=== PATIENT | male | born 1970 | race Caucasian/White ===

== ENCOUNTER 2023-09-02 08:41 | Emergency (ER) | payer OTHER ==
--- NOTE | 2023-09-02 08:56 | ERPHSYRPT ---
- History of Present Illness Time Seen by Provider: 09/02/23 08:56 Source: patient Exam Limitations: no limitations Physician History: This is an [id number] white male patient has a history of hypertension, gout and is diabetic and presents with left foot redness and swelling for approximately 4 to 5 days. Patient has recurrent issues with ingrown toenails of the left great toe. Patient states that the redness today has retracted somewhat. The redness and swelling are at the foot and right great toe. It does not extend to the ankle or more proximally. Method of Injury: other (Ingrown left great toenail) Quality: constant, aching Severity of Pain-Max: mild Severity of Pain-Current: mild (To moderate to moderate) Lower Extremities Pain: 1st toe: left Modifying Factors: Improves With: nothing Associated Symptoms: none Allergies/Adverse Reactions: No Known Drug Allergies Allergy (Verified 09/02/23 08:50) Home Medications: Allopurinol 100 mg [Zyloprim 100 mg] 1 tab PO DAILY 09/02/23 [History] Glipizide 5 mg [Glucotrol 5 MG] 1 tab PO DAILY 09/02/23 [History] Verapamil HCl [Verapamil ER] 1 cap PO DAILY 09/02/23 [History] Travel Risk - International Travel Have you traveled outside of the country in past 3 weeks: No - Coronavirus Screening Are you exhibiting any of the following symptoms?: No Close contact with a COVID-19 positive Pt in past 14-21 Days: No - Review of Systems Constitutional: No Symptoms Eyes: No Symptoms Ears, Nose, & Throat: No Symptoms Respiratory: No Symptoms Cardiac: No Symptoms Abdominal/Gastrointestinal: No Symptoms Genitourinary Symptoms: No Symptoms Musculoskeletal: No Symptoms Skin: Cellulitis (Left foot) Neurological: No Symptoms Psychological: No Symptoms Endocrine: No Symptoms Hematologic/Lymphatic: No Symptoms Immunological/Allergic: No Symptoms All Other Systems: Reviewed and Negative - Past Medical History Pertinent Past Medical History: Yes - Past Surgical History Past Surgical History: Yes - Nursing Vital Signs Nursing Vital Signs: Initial Vital Signs Temperature 97.4 F 09/02/23 08:41 Pulse Rate 103 H 09/02/23 08:41 Respiratory Rate 21 09/02/23 08:41 Blood Pressure 176/92 09/02/23 08:41 O2 Sat by Pulse Oximetry 96 09/02/23 08:41 Pain Scale Pain Intensity 4 - Physical Exam General Appearance: no apparent distress, alert, obese Eyes, Ears, Nose, Throat Exam: normal ENT inspection, moist mucous membranes Neck Exam: normal inspection, non-tender, supple, full range of motion Cardiovascular/Respiratory Exam: chest non-tender, no respiratory distress Gastrointestinal/Abdominal Exam: non-tender Back Exam: normal inspection, normal range of motion, No CVA tenderness, No vertebral tenderness Hips Exam: bilateral: non-tender, normal inspection, normal range of motion, no evidence of injury Legs Exam: bilateral leg: non-tender, normal inspection, normal range of motion, no evidence of injury Knees Exam: bilateral knee: non-tender, normal inspection, normal range of motion, no evidence of injury Ankle Exam: bilateral ankle: non-tender, normal inspection, normal range of motion, no evidence of injury Foot Exam: right foot: non-tender, normal inspection, no evidence of injury, left foot: soft tissue tenderness, swelling, other (Redness/cellulitis left foot), bilateral foot: normal range of motion Neuro/Tendon Exam: normal sensation, normal motor functions, normal tendon functions, responds to pain, no evidence tendon injury Mental Status Exam: alert, oriented x 3, cooperative Skin Exam: normal color, warm, dry SpO2 Interpretation: normal O2 Delivery: Room Air - Course Nursing assessment & vital signs reviewed: Yes Ordered Tests: Medication Summary Discontinued Medications Generic Name Dose Route Start Last Admin Trade Name Neris PRN Reason Stop Dose Admin Ceftriaxone Sodium 1,000 mg 09/02/23 09:33 Ceftriaxone Sodium 1000 Mg Inj Vial IM 09/02/23 09:34 STAT ONE Levofloxacin 500 mg 09/02/23 09:34 Levofloxacin 500 Mg Tablet PO 09/02/23 09:35 STAT ONE - Progress Progress Note: 09/02/23 09:42 This patient's medical issue is 1 of low complexity. Level complex in the workup performed is based on review the patient's past medical history, reviewed patient's medication list, reviewed patient's drug allergy list, history of present illness and physical findings on examination. This patient worked up does not require any laboratory radiographic studies. Patient will receive an intramuscular dose of Rocephin as well as an oral dose of Levaquin. I will remotely send a prescription for indomethacin, Levaquin, and Percocet to the patient's pharmacy. Patient will return to our emergency department for reevaluation in 24 hours. Medical Desision Making - Diagnostic Testing Diagnostic test were ordered, analyzed, and reviewed by me: No - Risk of complications The pt has a mod risk of morbidity or mortality based on: Need for prescription drug management - Departure Departure Disposition: Home Clinical Impression: Cellulitis of left foot Condition: Stable Critical Care Time: No Additional Instructions: Drink plenty fluids. Take your medication as prescribed. Return to the emergency department tomorrow approximately noon, 09/03/2023, for reevaluation. Prescriptions: Oxycodone HCl/Acetaminophen [Percocet 5-325 mg Tablet] 1 each PO Q8H PRN PRN #6 tablet MDD 3 PRN Reason: Moderate To Severe Pain Indomethacin 25 mg [Indocin 25 MG] 25 mg PO TID #15 cap Levofloxacin [Levaquin 500 MG Tablet] 500 mg PO DAILY #7 tablet
[2023-09-02 09:03] VITALS: TEMP 97.4
[2023-09-02 09:28] VITALS: PULSE 96
[2023-09-02] MEDS ORDERED: Rocephin 1000 MG INJ IM ONE (09:33)
[2023-09-02] MEDS ORDERED: Levofloxacin 500 MG Tablet PO ONE (09:34)
[2023-09-02] MEDS ORDERED: Rocephin 1000 MG INJ ONE (09:46)
[2023-09-02] MEDS ORDERED: Levofloxacin 500 MG Tablet ONE (09:46)
[2023-09-02] MEDS ORDERED: XYLOCAINE 1% HCL 20 ML MDV ONE (09:47)
[2023-09-02 10:04] VITALS: BP 151/85; RESP 18; O2SAT 98
== END 2023-09-02 10:04 | disposition home or self-care (01) ==
LOC: ED 08:41
DX: L03.116 Cellulitis of left lower limb (principal); M79.89 Other specified soft tissue disorders; I10 Essential (primary) hypertension; E11.9 Type 2 diabetes mellitus without complications; Z79.891 Long term (current) use of opiate analgesic; Z79.84 Long term (current) use of oral hypoglycemic drugs; Z79.899 Other long term (current) drug therapy
CPT/HCPCS: 96372; 99283; J0696; A9270-GY

== ENCOUNTER 2024-09-06 07:31 | Observation (INO) | payer OTHER ==
--- NOTE | 2024-09-06 07:51 | ERPHSYRPT ---
- History of Present Illness Time Seen by Provider: 09/06/24 08:00 Historian: patient Exam Limitations: no limitations Physician History: 54-year-old male presents to emergency department for evaluation of chest pain. Patient has a back abscess. Patient states the abscess has been draining spontaneously. However patient now feels chest pain and patient believes the c hest pain may be potentially originating from the abscess. Chest pain associated with nausea. No diaphoresis. No trauma. Symptoms are mild to moderate in intensity. Patient requesting pain medication for comfort. Morphine administered. Patient otherwise feels well. He voices no other complaints or concerns at this time. Patient advises that [facility] is [facility]. Portions of this note were created with voice recognition technology. There may be grammatical, spelling, punctuation or sound alike errors Timing/Duration: today Activities at Onset: none Quality: aching Location: substernal, other (Patient states pain radiates from his abscess to his chest) Severity of Pain-Current: mild Modifying Factors: Improves With: nothing Associated Symptoms: denies symptoms Prior Chest Pain/Cardiac Workup: no prior chest pain Nitro Today/Relief: no nitro taken today Aspirin Treatment Today: no aspirin today Allergies/Adverse Reactions: lansoprazole [From Prevacid] Allergy (Verified 09/06/24 07:43) Home Medications: Allopurinol 100 mg [Zyloprim 100 mg] 1 tab PO DAILY 09/02/23 [History] Glipizide 5 mg [Glucotrol 5 MG] 1 tab PO DAILY 09/02/23 [History] Verapamil HCl [Verapamil ER] 1 cap PO DAILY 09/02/23 [History] Lisinopril/Hydrochlorothiazide [Lisinopril-Hctz 20-12.5 mg Tab] 1 ea DAILY 09/06/24 [History] Metformin HCl 500 mg [Glucophage 500 MG] 1,000 mg PO BIDWM 09/06/24 [History] Methocarbamol [Robaxin] 1 ea DAILY 09/06/24 [History] Hx Tetanus, Diphtheria Vaccination/Date Given: Yes Hx Influenza Vaccination/Date Given: No Hx Pneumococcal Vaccination/Date Given: No - Review of Systems Constitutional: No Symptoms, No Fever, No Chills Eyes: No Symptoms Ears, Nose, & Throat: No Symptoms Respiratory: No Symptoms, No Cough, No Dyspnea Cardiac: No Symptoms, No Chest Pain, No Edema, No Syncope Abdominal/Gastrointestinal: No Symptoms, No Abdominal Pain, No Nausea, No Vomiting, No Diarrhea Genitourinary Symptoms: No Symptoms, No Dysuria Musculoskeletal: No Symptoms, No Back Pain, No Neck Pain Skin: No Symptoms, No Rash Neurological: No Symptoms, No Dizziness, No Focal Weakness, No Sensory Changes Psychological: No Symptoms Endocrine: No Symptoms Hematologic/Lymphatic: No Symptoms Immunological/Allergic: No Symptoms All Other Systems: Reviewed and Negative - Past Medical History Pertinent Past Medical History: Yes Cardiac History: High Cholesterol, Hypertension Respiratory History: Sleep Apnea Endocrine Medical History: Diabetes Type II Musculoskeletal History: Arthritis GI Medical History: Gallbladder Disease Psycho-Social History: Depression - Past Surgical History Past Surgical History: Yes Gastrointestinal: Cholecystectomy - Social History Smoking Status: Never smoker Exposure to second hand smoke: No Drug Use: none - Nursing Vital Signs Nursing Vital Signs: Initial Vital Signs Pulse Rate 113 H 09/06/24 07:43 Respiratory Rate 23 09/06/24 07:43 Blood Pressure 156/97 09/06/24 07:43 O2 Sat by Pulse Oximetry 95 09/06/24 07:43 Pain Scale Pain Intensity 6 - Physical Exam General Appearance: no apparent distress, alert Eye Exam: PERRL/EOMI, eyes nml inspection Ears, Nose, Throat Exam: normal ENT inspection, moist mucous membranes Neck Exam: normal inspection, non-tender, supple, full range of motion Respiratory Exam: normal breath sounds, lungs clear, No respiratory distress Cardiovascular Exam: regular rate/rhythm, normal heart sounds Gastrointestinal/Abdomen Exam: soft, No tenderness, No mass Back Exam: normal inspection, No CVA tenderness, No vertebral tenderness Extremity Exam: normal inspection, normal range of motion Neurologic Exam: alert, oriented x 3, cooperative, normal mood/affect, sensation nml, No motor deficits Skin Exam: normal color, warm, dry, other (Right upper back draining abscess measuring 2 x 2 cm.) Lymphatic Exam: No adenopathy SpO2 Interpretation: normal SpO2: 99 O2 Delivery: Room Air - Course Nursing assessment & vital signs reviewed: Yes EKG Interpreted by Me: RATE (110), Sinus Tach, NORMAL AXIS, NORMAL INTERVALS, NORMAL QRS (T wave inversion in inferior leads) Ordered Tests: Active Orders 24 hr Category Date Time Status Cost And Sales Record Supervisor STAT Care 09/06/24 07:48 Active EKG-ER Only STAT Care 09/06/24 07:47 Active IV Insertion STAT Care 09/06/24 07:47 Active Pulse Oximetry (ED) STAT Care 09/06/24 07:47 Active CHEST 1 VIEW (PORTABLE) Stat Exams 09/06/24 09:31 Completed CHEST WITH CONTRAST [CT] Stat Exams 09/06/24 12:50 Completed CBC W DIFF Stat Lab 09/06/24 08:05 Completed CMP Stat Lab 09/06/24 08:05 Completed D-DIMER QUANTITATIVE Stat Lab 09/06/24 08:05 Completed NT PRO BNPII Stat Lab 09/06/24 08:05 Completed TROPONIN Q4H Lab 09/06/24 08:05 Completed TROPONIN Q4H Lab 09/06/24 10:55 Completed TROPONIN Q4H Lab 09/06/24 16:00 Ordered Transfer Order Routine Transfer 09/06/24 Ordered Medication Summary Generic Name Dose Route Start Last Admin Trade Name Freq PRN Reason Stop Dose Admin Sodium Chloride 1,000 mls @ 100 mls/hr 09/06/24 12:15 09/06/24 13:24 Sodium Chloride 0.9% 1000 Ml IV 10/06/24 12:14 100 mls/hr .Q10H JANE Administration Discontinued Medications Generic Name Dose Route Start Last Admin Trade Name Freq PRN Reason Stop Dose Admin Aspirin 324 mg 09/06/24 07:49 09/06/24 08:12 Aspirin 81 Mg Tab.Chew PO 09/06/24 07:50 324 mg STAT ONE Administration Aspirin Confirm 09/06/24 08:09 Aspirin 81 Mg Tab.Chew Administered 09/06/24 08:10 Dose 324 mg .ROUTE .STK-MED ONE Doxycycline Hyclate 100 mg 09/06/24 12:00 09/06/24 12:04 Doxycycline Hyclate 100 Mg Tablet PO 09/06/24 12:01 100 mg STAT ONE Administration Doxycycline Hyclate Confirm 09/06/24 12:04 Doxycycline Hyclate 100 Mg Tablet Administered 09/06/24 12:05 Dose 100 mg .ROUTE .STK-MED ONE Vancomycin HCl 1 gm in 200 mls @ 125 mls/hr 09/06/24 12:51 09/06/24 13:25 Vancomycin 1 Gram/200 Ml Bag IV 09/06/24 14:26 125 ml/hr STAT ONE 125 mls/hr Administration Vancomycin HCl Confirm 09/06/24 13:21 Vancomycin 1 Gram/200 Ml Bag Administered 09/06/24 13:22 Dose 1 gm in 200 mls @ ud IV .STK-MED ONE Morphine Sulfate 2 mg 09/06/24 09:25 09/06/24 09:34 Morphine Sulfate 2 Mg/Ml Inj IV 09/06/24 09:26 2 mg STAT ONE Administration Morphine Sulfate Confirm 09/06/24 09:34 Morphine Sulfate 2 Mg/Ml Inj Administered 09/06/24 09:35 Dose 2 mg .ROUTE .STK-MED ONE Morphine Sulfate 4 mg 09/06/24 12:59 09/06/24 13:25 Morphine Sulfate 4 Mg/Ml Injection IV 09/06/24 13:00 4 mg STAT ONE Administration Morphine Sulfate Confirm 09/06/24 13:20 Morphine Sulfate 4 Mg/Ml Injection Administered 09/06/24 13:21 Dose 4 mg .ROUTE .STK-MED ONE Nitroglycerin 1 gm 09/06/24 12:36 09/06/24 13:25 Nitroglycerin 1 Gm Packet TOP 09/06/24 12:37 1 gm STAT ONE Administration Nitroglycerin Confirm 09/06/24 13:20 Nitroglycerin 1 Gm Packet Administered 09/06/24 13:21 Dose 1 gm .ROUTE .STK-MED ONE Ondansetron HCl 4 mg 09/06/24 08:04 09/06/24 08:12 Ondansetron Hcl 4 Mg/2 Ml Vial IV 09/06/24 08:05 4 mg STAT ONE Administration Ondansetron HCl Confirm 09/06/24 08:08 Ondansetron Hcl 4 Mg/2 Ml Vial Administered 09/06/24 08:09 Dose 4 mg .ROUTE .STK-MED ONE Lab/Rad Data: Laboratory Result Diagrams 09/06/24 08:05 09/06/24 08:05 Laboratory Results 09/06/24 09/06/24 09/06/24 Range/Units 10:55 08:05 08:05 WBC (4.23-9.07) x10^3/uL RBC (4.63-6.08) x10^6/uL Hgb (13.7-17.5) g/dL Hct (40.1-51.0) % MCV (79.0-92.2) fL MCH (25.7-32.2) pg MCHC (32.3-36.5) g/dL RDW (11.6-14.4) % Plt Count (163-337) x10^3/uL MPV (9.4-12.4) fL Gran % (34.0-67.9) % Immature Gran % (Auto) (0.001-0.429) % Nucleat RBC Rel Count (0.00-0.2) % Eos # (Auto) (0.04-0.54) x10^3/uL Immature Gran # (Auto) (0.001-0.031) x10^3u/L Absolute Lymphs (auto) (1.32-3.57) x10^3/uL Absolute Monos (auto) (0.30-0.82) x10^3/uL Absolute Nucleated RBC (0.00-0.012) x10^3u/L Lymphocytes % (21.8-53.1) % Monocytes % (5.3-12.2) % Eosinophils % (0.8-7.0) % Basophils % (0.2-1.2) % Absolute Granulocytes (1.78-5.38) x10^3/uL Basophils # (0.01-0.08) x10^3/uL D-Dimer < 0.19 (0.0-0.50) mg/L Sodium (135-145) mmol/L Potassium (3.5-5.1) mmol/L Chloride (98-107) mmol/L Carbon Dioxide (22-30) mmol/L Anion Gap (5-15) MEQ/L BUN (9-20) mg/dL Creatinine (0.66-1.25) mg/dL Estimated GFR ML/MIN Glucose (74-106) mg/dL Calcium (8.4-10.2) mg/dL Total Bilirubin (0.2-1.3) mg/dL AST (17-59) U/L ALT (0-50) U/L Alkaline Phosphatase (38-126) U/L Troponin I < 0.012 < 0.012 (0.000-0.033) ng/mL NT-Pro-B Natriuret Pep (<300) pg/mL Serum Total Protein (6.3-8.2) g/dL Albumin (3.5-5.0) g/dL 09/06/24 09/06/24 Range/Units 08:05 08:05 WBC 15.5 H (4.23-9.07) x10^3/uL RBC 4.81 (4.63-6.08) x10^6/uL Hgb 14.2 (13.7-17.5) g/dL Hct 40.7 (40.1-51.0) % MCV 84.6 (79.0-92.2) fL MCH 29.5 (25.7-32.2) pg MCHC 34.9 (32.3-36.5) g/dL RDW 12.9 (11.6-14.4) % Plt Count 210 (163-337) x10^3/uL MPV 9.7 (9.4-12.4) fL Gran % 73.1 H (34.0-67.9) % Immature Gran % (Auto) 0.5 H (0.001-0.429) % Nucleat RBC Rel Count 0.0 (0.00-0.2) % Eos # (Auto) 0.15 (0.04-0.54) x10^3/uL Immature Gran # (Auto) 0.08 H (0.001-0.031) x10^3u/L Absolute Lymphs (auto) 2.44 (1.32-3.57) x10^3/uL Absolute Monos (auto) 1.44 H (0.30-0.82) x10^3/uL Absolute Nucleated RBC 0.00 (0.00-0.012) x10^3u/L Lymphocytes % 15.8 L (21.8-53.1) % Monocytes % 9.3 (5.3-12.2) % Eosinophils % 1.0 (0.8-7.0) % Basophils % 0.3 (0.2-1.2) % Absolute Granulocytes 11.32 H (1.78-5.38) x10^3/uL Basophils # 0.04 (0.01-0.08) x10^3/uL D-Dimer (0.0-0.50) mg/L Sodium 131 L (135-145) mmol/L Potassium 3.9 (3.5-5.1) mmol/L Chloride 98 (98-107) mmol/L Carbon Dioxide 21 L (22-30) mmol/L Anion Gap 16.9 H (5-15) MEQ/L BUN 14 (9-20) mg/dL Creatinine 0.61 L (0.66-1.25) mg/dL Estimated GFR 113.4 ML/MIN Glucose 373 H (74-106) mg/dL Calcium 9.2 (8.4-10.2) mg/dL Total Bilirubin 0.60 (0.2-1.3) mg/dL AST 33 (17-59) U/L ALT 39 (0-50) U/L Alkaline Phosphatase 77 (38-126) U/L Troponin I (0.000-0.033) ng/mL NT-Pro-B Natriuret Pep 22.4 (<300) pg/mL Serum Total Protein 6.7 (6.3-8.2) g/dL Albumin 4.0 (3.5-5.0) g/dL - Progress Progress: improved Air Movement: good Progress Note: Patient will require hospitalization for further evaluation and treatment. [facility] We spoke to Pankaj from the transfer center at 12:34 PM. She advised keeping patient at our hospital for the required workup. 54-year-old male presents to our ED for evaluation of chest pain, nausea and a draining back abscess. Preliminary workup nonremarkable. EKG reveals inverted T waves. Initial 2 troponins negative. D-dimer negative. Patient will require hospitalization for further evaluation and treatment. Case discussed with hospitalist who accepts admission to observation. However she request CT a chest and vancomycin prior to floor transfer. Plan of care discussed with patient. He agrees to admission to [facility] for further evaluation and treatment. Portions of this note were created with voice recognition technology. There may be grammatical, spelling, punctuation or sound alike errors Complexity of problem addressed is moderate acute complicated no critical care time. Complex of data reviewed and analyzed is extensive. Test ordered chest reviewed results analyzed and correlated clinically with history and physical exam. Management discussed with hospitalist who accepts admission to observation at 12:48 PM. Risk of complication and or risk of morbidity/mortality of patient management is high. Patient requires hospitali zation for further evaluation and treatment. Vital stable. Time spent admit patient is approximately 15 minutes. Plan of care established for shared decision making. No social determinants of health present to impede follow-up. Portions of this note were created with voice recognition technology. There may be grammatical, spelling, punctuation or sound alike errors 09/06/24 12:35 Blood Culture(s) Obtained: No Antibiotics given: No Counseled pt/family regarding: lab results, diagnosis, need for follow-up, rad results - Departure Departure Disposition: Observation Clinical Impression: Chest pain, ACS (acute coronary syndrome), Abnormal EKG, Back abscess, Leukocytosis, Hyponatremia, Hypoglycemia, Fatty liver, Renal cyst, left Condition: Stable Critical Care Time: No
[2024-09-06] MEDS ORDERED: Zofran 4 MG/2 ML VIAL ONE (08:08)
[2024-09-06] MEDS ORDERED: BABY ASPIRIN 81 MG CHEW ONE (08:09)
[2024-09-06] MEDS: Zofran 4 MG/2 ML VIAL IV ONE (08:12)
[2024-09-06] MEDS: BABY ASPIRIN 81 MG CHEW PO ONE (08:12)
[2024-09-06 08:22] LABS: Absolute Neutrophil Ct (ANC) 11.32 x10^3/uL (1.78-5.38); BASOPHIL % 0.3 % (0.2-1.2); Basophil (Absolute #) 0.04 x10^3/uL (0.01-0.08); Eosinophil (Absolute #) 0.15 x10^3/uL (0.04-0.54); Hematocrit 40.7 % (40.1-51.0); Hemoglobin 14.2 g/dL (13.7-17.5); IMMATURE GRAN # 0.08 x10^3u/L (0.001-0.031); IMMATURE GRAN % 0.5 % (0.001-0.429); Lymphocyte (Absolute #) 2.44 x10^3/uL (1.32-3.57); Lymphocytes % 15.8 % (21.8-53.1); Mean Cell Volume 84.6 fL (79.0-92.2); Mean Corpuscular Hemoglobin 29.5 pg (25.7-32.2); Mean Corpuscular Hgb Concent. 34.9 g/dL (32.3-36.5); Mean Platelet Volume 9.7 fL (9.4-12.4); Monocyte (Absolute #) 1.44 x10^3/uL (0.30-0.82); Monocytes % 9.3 % (5.3-12.2); Neutrophil % 73.1 % (34.0-67.9); Platelet Count 210 x10^3/uL (163-337); Red Blood Count 4.81 x10^6/uL (4.63-6.08); Red Cell Distribution Width 12.9 % (11.6-14.4); White Blood Count 15.5 x10^3/uL (4.23-9.07)
[2024-09-06 09:12] LABS: ANION GAP 16.9 MEQ/L (5-15); BILIRUBIN,TOTAL 0.6 mg/dL (0.2-1.3); Calcium 9.2 mg/dL (8.4-10.2); Creatinine 1 0.61 mg/dL (0.66-1.25); EST GLOMERULAR FILTRATION RATE 113.4 ML/MIN; NT PRO BNPII 22.4 pg/mL (<300); Potassium 3.9 mmol/L (3.5-5.1); Total Protein 6.7 g/dL (6.3-8.2)
[2024-09-06] MEDS: MORPHINE SULFATE 2 MG INJ IV ONE ×2 (09:34→18:41)
[2024-09-06] MEDS ORDERED: MORPHINE SULFATE 2 MG INJ ONE (09:34)
--- NOTE | 2024-09-06 10:03 | XRAY ---
Indication: Pain. Comparison: None Portable chest demonstrates normal heart and lungs. Bony thorax intact.
[2024-09-06] MEDS: Vibramycin 100 MG PO ONE (12:04)
[2024-09-06] MEDS ORDERED: Vibramycin 100 MG ONE (12:04)
[2024-09-06] MEDS ORDERED: Sodium Chloride 0.9% 1000 ML 1,000 ML ONE (13:20)
[2024-09-06] MEDS ORDERED: MORPHINE SULFATE 4 MG INJ ONE (13:20)
[2024-09-06] MEDS ORDERED: NITRO-BID 2% UD PACKETS ONE (13:20)
[2024-09-06] MEDS ORDERED: VANCOMYCIN 1 GRAM/200 ML BAG 1 GM/200 ML PIGGYBACK IV ONE (13:21)
[2024-09-06] MEDS: Sodium Chloride 0.9% 1000 ML 1,000 ML IV SCH (13:24)
[2024-09-06] MEDS: MORPHINE SULFATE 4 MG INJ IV ONE (13:25)
[2024-09-06] MEDS: NITRO-BID 2% UD PACKETS TOP ONE (13:25)
[2024-09-06] MEDS: VANCOMYCIN 1 GRAM/200 ML BAG 1 GM/200 ML PIGGYBACK IV ONE (13:25)
--- NOTE | 2024-09-06 14:48 | XRAY ---
Indication: Back/chest pain. Right scapular abscess. Multiple contiguous axial images obtained through the chest using 80 cc Isovue 370 contrast. Cutaneous BB placed over region of interest. Comparison: None Right posterior cutaneous BB seen approximately cervical thoracic junction were there is small focus of subcutaneous induration presumed inflammatory/infectious. No focal walled off fluid collection or soft tissue emphysema. No pathologic axillary lymphadenopathy. Lungs inflated and clear. Heart is not enlarged with minimal coronary calcifications. Aorta is normal in course and caliber. No pathologic mediastinal/hilar lymphadenopathy. Small hiatal hernia. Bony thorax intact with minimal degenerative changes throughout spine. Limited upper abdomen demonstrates fatty liver and 6 cm left renal cyst. Impression: 1. Right back subcutaneous induration as detailed presumed inflammatory/infectious. No walled off fluid collection/abscess or pathologic lymphadenopathy. 2. Chronic findings including hiatal hernia, coronary calcifications, degenerative spondylosis, fatty liver, and left renal cyst. 3. Remaining CT chest with contrast exam is negative.
--- NOTE | 2024-09-06 15:29 | PCM.HP ---
<BLANCA CARLSON - Last Filed: 09/06/24 15:16> History of Present Illness - Chief Complaint Chief Complaint: Chest pain, wound to right upper back Date: 09/06/24 History of Present Illness: is a 54 year old maleMrSteve Andre is a 54 year old male with a pmhx of HLD, HTN, DMII, and depression who presented to ED 09/06/24 with complaints of a draining abscess to his right upper back and chest pain. Patient states that he noticed a raised, red his right upper back 09/01/21 that was warm to touch, he thought it was a pimple and tried to pop it the following Thursday and copious amounts of purulent drainage came out. The area has since gotten progressively bigger and has been draining constantly. He has also been experiencing constant pain which he rates 10/10 on a numerical pain scale. He also reports moderate, sharp substernal chest pain which started last night. No radiation. Associated nausea. Episodes lasting about an hour at a time. It has been relieved with morphine given in the ED, currently rating chest pain at a 0/10. No aggravating factors. He denies previous heart history or similar episodes of chest pain. Patient was a former smoker but quit in 1991. Denies fever,cough, sob, abdominal pain, OKEEFE, dizziness, N/V/D. Upon presentation patient was tachycardic and hypertensive. EKG per ED physician read showing RATE (110), Sinus Tach, NORMAL AXIS, NORMAL INTERVALS, NORMAL QRS (T wave inversion in inferior leads). CT chest with contrast demonstrates Right back subcutaneous induration as detailed presumed inflammatory/infectious. No walled off fluid collection/abscess or pathologic lymphadenopathy. Lab findings remarkable for leukocytosis with wbc at 15.5, hyponatremia in the setting of hyperglycemia with sodium at 131 and glucose at 373, Co2 at 21, and GAP at 16.9. Troponins x 2 WNL, BNP at 22.4. Patient given 324mg ASA, doxycycline, vancomycin, nitro, and morphine in ED. Admit for Back abscess and Chest pain evaluation. Plan for IV abx, trop series, repeat EKG in the a.m., and surgery consult. - Review of Systems Constitutional: No Symptoms Eyes: No Symptoms Ears, Nose, & Throat: No Symptoms Respiratory: No Symptoms Cardiac: Chest Pain Abdominal/Gastrointestinal: Nausea Genitourinary Symptoms: No Symptoms Musculoskeletal: No Symptoms Skin: Induration (open area to right upper back, erythema and surrounding induration/drainage), Skin Lesions Neurological: No Symptoms Psychological: No Symptoms Endocrine: No Symptoms Hematologic/Lymphatic: No Symptoms Immunological/Allergic: No Symptoms Medications & Allergies Home Medications: Home Medication List Allopurinol 100 mg [Zyloprim 100 mg] 1 tab PO DAILY 09/02/23 [History Confirmed 09/06/24] Glipizide 5 mg [Glucotrol 5 MG] 1 tab PO BID 09/02/23 [History Confirmed 09/06/24] Verapamil HCl [Verapamil ER] 1 cap PO DAILY 09/02/23 [History Confirmed 09/06/24] Lisinopril/Hydrochlorothiazide [Lisinopril-Hctz 20-12.5 mg Tab] 1 ea DAILY 09/06/24 [History Confirmed 09/06/24] Metformin HCl 500 mg [Glucophage 500 MG] 1,000 mg PO BIDWM 09/06/24 [History Confirmed 09/06/24] Methocarbamol [Robaxin] 1 ea DAILY 09/06/24 [History Confirmed 09/06/24] Allergies/Adverse Reactions: Allergies Allergy/AdvReac Type Severity Reaction Status Date / Time lansoprazole [From Prevacid] Allergy Verified 09/06/24 07:43 - Past Medical History Past Medical History: Yes Cardiac History: High Cholesterol, Hypertension Respiratory History: Sleep Apnea Endocrine Medical History: Diabetes Type II Musculoskelatal History: Arthritis GI Medical History: Gallbladder Disease Pyscho-Social History: Depression - Past Surgical History Past Surgical History: Yes GI Surgical History: Cholecystectomy Significant Family History: heart disease - Social History Smoking Status: Former smoker (quit 1991) Exposure to second hand smoke: No Alcohol: Rarely Drug Use: none - Social Determinants of Health Will the patient participate in the screening: Declined to provide Comment: pt vomiting and declined - Physical Exam Vital Signs: Vital Signs - 24 hr Temp Pulse Resp BP BP Pulse Ox 09/06/24 14:57 99 09/06/24 14:30 112/52 09/06/24 14:18 87 16 124/58 95 09/06/24 13:30 147/61 09/06/24 13:00 87 13 127/71 95 09/06/24 12:30 89 10 L 141/65 97 09/06/24 12:00 86 17 123/70 95 09/06/24 11:30 87 16 137/71 95 09/06/24 11:01 88 18 131/56 96 09/06/24 10:31 86 22 76/51 96 09/06/24 10:00 131/55 90 L 09/06/24 09:30 87 22 125/77 94 L 09/06/24 09:00 93 H 20 131/102 97 09/06/24 08:30 98 H 16 141/72 95 09/06/24 08:20 99 H 22 93 L 09/06/24 08:10 99 H 22 93 L 09/06/24 08:03 108 H 21 93 L 09/06/24 08:00 95 09/06/24 07:48 97.9 F 110 H 18 156/92 99 09/06/24 07:43 113 H 23 156/97 95 General Appearance: no apparent distress Neurologic Exam: alert, oriented x 3, cooperative Eye Exam: PERRL/EOMI Ears, Nose, Throat Exam: normal ENT inspection Neck Exam: normal inspection Respiratory Exam: normal breath sounds, lungs clear Cardiovascular Exam: tachycardia Rectal Exam: deferred Back Exam: normal range of motion Extremity Exam: normal inspection Skin Exam: other (open area to right upper back, erythema and surrounding induration/drainage) Results - Labs Lab/Micro Results: Lab Results-Last 24 Hours 09/06/24 09/06/24 09/06/24 Range/Units 08:05 08:05 08:05 WBC 15.5 H (4.23-9.07) x10^3/uL RBC 4.81 (4.63-6.08) x10^6/uL Hgb 14.2 (13.7-17.5) g/dL Hct 40.7 (40.1-51.0) % MCV 84.6 (79.0-92.2) fL MCH 29.5 (25.7-32.2) pg MCHC 34.9 (32.3-36.5) g/dL RDW 12.9 (11.6-14.4) % Plt Count 210 (163-337) x10^3/uL MPV 9.7 (9.4-12.4) fL Gran % 73.1 H (34.0-67.9) % Immature Gran % (Auto) 0.5 H (0.001-0.429) % Nucleat RBC Rel Count 0.0 (0.00-0.2) % Eos # (Auto) 0.15 (0.04-0.54) x10^3/uL Immature Gran # (Auto) 0.08 H (0.001-0.031) x10^3u/L Absolute Lymphs (auto) 2.44 (1.32-3.57) x10^3/uL Absolute Monos (auto) 1.44 H (0.30-0.82) x10^3/uL Absolute Nucleated RBC 0.00 (0.00-0.012) x10^3u/L Lymphocytes % 15.8 L (21.8-53.1) % Monocytes % 9.3 (5.3-12.2) % Eosinophils % 1.0 (0.8-7.0) % Basophils % 0.3 (0.2-1.2) % Absolute Granulocytes 11.32 H (1.78-5.38) x10^3/uL Basophils # 0.04 (0.01-0.08) x10^3/uL D-Dimer < 0.19 (0.0-0.50) mg/L Sodium 131 L (135-145) mmol/L Potassium 3.9 (3.5-5.1) mmol/L Chloride 98 (98-107) mmol/L Carbon Dioxide 21 L (22-30) mmol/L Anion Gap 16.9 H (5-15) MEQ/L BUN 14 (9-20) mg/dL Creatinine 0.61 L (0.66-1.25) mg/dL Estimated GFR 113.4 ML/MIN Glucose 373 H (74-106) mg/dL Calcium 9.2 (8.4-10.2) mg/dL Total Bilirubin 0.60 (0.2-1.3) mg/dL AST 33 (17-59) U/L ALT 39 (0-50) U/L Alkaline Phosphatase 77 (38-126) U/L Troponin I (0.000-0.033) ng/mL NT-Pro-B Natriuret Pep 22.4 (<300) pg/mL Serum Total Protein 6.7 (6.3-8.2) g/dL Albumin 4.0 (3.5-5.0) g/dL 09/06/24 09/06/24 Range/Units 08:05 10:55 WBC (4.23-9.07) x10^3/uL RBC (4.63-6.08) x10^6/uL Hgb (13.7-17.5) g/dL Hct (40.1-51.0) % MCV (79.0-92.2) fL MCH (25.7-32.2) pg MCHC (32.3-36.5) g/dL RDW (11.6-14.4) % Plt Count (163-337) x10^3/uL MPV (9.4-12.4) fL Gran % (34.0-67.9) % Immature Gran % (Auto) (0.001-0.429) % Nucleat RBC Rel Count (0.00-0.2) % Eos # (Auto) (0.04-0.54) x10^3/uL Immature Gran # (Auto) (0.001-0.031) x10^3u/L Absolute Lymphs (auto) (1.32-3.57) x10^3/uL Absolute Monos (auto) (0.30-0.82) x10^3/uL Absolute Nucleated RBC (0.00-0.012) x10^3u/L Lymphocytes % (21.8-53.1) % Monocytes % (5.3-12.2) % Eosinophils % (0.8-7.0) % Basophils % (0.2-1.2) % Absolute Granulocytes (1.78-5.38) x10^3/uL Basophils # (0.01-0.08) x10^3/uL D-Dimer (0.0-0.50) mg/L Sodium (135-145) mmol/L Potassium (3.5-5.1) mmol/L Chloride (98-107) mmol/L Carbon Dioxide (22-30) mmol/L Anion Gap (5-15) MEQ/L BUN (9-20) mg/dL Creatinine (0.66-1.25) mg/dL Estimated GFR ML/MIN Glucose (74-106) mg/dL Calcium (8.4-10.2) mg/dL Total Bilirubin (0.2-1.3) mg/dL AST (17-59) U/L ALT (0-50) U/L Alkaline Phosphatase (38-126) U/L Troponin I < 0.012 < 0.012 (0.000-0.033) ng/mL NT-Pro-B Natriuret Pep (<300) pg/mL Serum Total Protein (6.3-8.2) g/dL Albumin (3.5-5.0) g/dL - Radiology Impressions Radiology Exams & Impressions: Radiology Procedures Category Date Time Status CHEST 1 VIEW (PORTABLE) Stat Exams 09/06/24 09:31 Completed CHEST WITH CONTRAST [CT] Stat Exams 09/06/24 12:50 Completed Assessment/Plan (1) Chest pain Current Visit: Yes Status: Acute Assessment & Plan: -EKG per ED physician read showing RATE (110), Sinus Tach, NORMAL AXIS, NORMAL INTERVALS, NORMAL QRS (T wave inversion in inferior leads) -risk factors of HTN, DM, BMI>30, former smoker, HLD - heart score of 5 -CT chest with contrast demonstrates Right back subcutaneous induration as detailed presumed inflammatory/infectious. No walled off fluid collection/abscess or pathologic lymphadenopathy -obs and monitor on tele overnight -Trops neg x 2 -Pain relieved with morphine -Echo -pain control with nitro/morphine Code(s): R07.9 - CHEST PAIN, UNSPECIFIED (2) Sepsis Current Visit: Yes Status: Acute Assessment & Plan: -Most likely secondary to back wound -CT Chest reviewed showing right back subcutaneous induration as detailed presumed inflammatory/infectious. No walled off fluid collection/abscess or pathologic lymphadenopathy -meets criteria with tachycardia, tachypnea, suspected source of infection, WBC at 15.5 -UA, pct, ESR, CRP, blood cultures x 2, lactic acid -Surgery consulted for wound evaluation -wound cultures ordered and pending -Doxy and Vanc given in ED- continue vanc/zosyn -target map >65 (3) Back abscess Current Visit: Yes Status: Acute Assessment & Plan: -see sepsis Code(s): L02.212 - CUTANEOUS ABSCESS OF BACK [ANY PART, EXCEPT BUTTOCK] (4) Hyponatremia Current Visit: Yes Status: Acute Assessment & Plan: -In the setting of hyperglycemia -received IVF in ED -will monitor, most likely will resolve as glucose levels improve Code(s): E87.1 - HYPO-OSMOLALITY AND HYPONATREMIA (5) HTN (hypertension) Current Visit: Yes Status: Acute Assessment & Plan: -continue home meds Code(s): I10 - ESSENTIAL (PRIMARY) HYPERTENSION (6) Type 2 diabetes mellitus Current Visit: Yes Status: Acute Assessment & Plan: -With hyperglycemia on arrival -ADA diet -SSI -high dose -Hold oral meds due to contrast -accuchecks -A1c (7) HLD (hyperlipidemia) Current Visit: Yes Status: Acute Assessment & Plan: -continue home regimen Code(s): E78.5 - HYPERLIPIDEMIA, UNSPECIFIED (8) Depression Current Visit: Yes Status: Acute Assessment & Plan: -Patient states he does not take prescribed medication Code(s): F32.A - DEPRESSION, UNSPECIFIED <BEKAH LOPEZ - Last Filed: 09/06/24 20:12> History of Present Illness - Chief Complaint History of Present Illness: is a 54 year old male. - Physical Exam Vital Signs: Vital Signs - 24 hr Temp Pulse Resp BP BP Pulse Ox 09/06/24 19:59 98.9 F 101 H 19 124/68 96 09/06/24 16:30 98.4 F 99 H 16 145/69 97 09/06/24 15:42 98.4 F 99 H 16 145/69 97 09/06/24 14:57 99 09/06/24 14:30 112/52 09/06/24 14:18 87 16 124/58 95 09/06/24 13:30 147/61 09/06/24 13:00 87 13 127/71 95 09/06/24 12:30 89 10 L 141/65 97 09/06/24 12:00 86 17 123/70 95 09/06/24 11:30 87 16 137/71 95 09/06/24 11:01 88 18 131/56 96 09/06/24 10:31 86 22 76/51 96 09/06/24 10:00 131/55 90 L 09/06/24 09:30 87 22 125/77 94 L 09/06/24 09:00 93 H 20 131/102 97 09/06/24 08:30 98 H 16 141/72 95 09/06/24 08:20 99 H 22 93 L 09/06/24 08:10 99 H 22 93 L 09/06/24 08:03 108 H 21 93 L 09/06/24 08:00 95 09/06/24 07:48 97.9 F 110 H 18 156/92 99 09/06/24 07:43 113 H 23 156/97 95 Results - Labs Lab/Micro Results: Lab Results-Last 24 Hours 09/06/24 09/06/24 09/06/24 Range/Units 08:00 08:00 08:05 WBC 15.5 H (4.23-9.07) x10^3/uL RBC 4.81 (4.63-6.08) x10^6/uL Hgb 14.2 (13.7-17.5) g/dL Hct 40.7 (40.1-51.0) % MCV 84.6 (79.0-92.2) fL MCH 29.5 (25.7-32.2) pg MCHC 34.9 (32.3-36.5) g/dL RDW 12.9 (11.6-14.4) % Plt Count 210 (163-337) x10^3/uL MPV 9.7 (9.4-12.4) fL Gran % 73.1 H (34.0-67.9) % Immature Gran % (Auto) 0.5 H (0.001-0.429) % Nucleat RBC Rel Count 0.0 (0.00-0.2) % Eos # (Auto) 0.15 (0.04-0.54) x10^3/uL Immature Gran # (Auto) 0.08 H (0.001-0.031) x10^3u/L Absolute Lymphs (auto) 2.44 (1.32-3.57) x10^3/uL Absolute Monos (auto) 1.44 H (0.30-0.82) x10^3/uL Absolute Nucleated RBC 0.00 (0.00-0.012) x10^3u/L Lymphocytes % 15.8 L (21.8-53.1) % Monocytes % 9.3 (5.3-12.2) % Eosinophils % 1.0 (0.8-7.0) % Basophils % 0.3 (0.2-1.2) % Absolute Granulocytes 11.32 H (1.78-5.38) x10^3/uL Basophils # 0.04 (0.01-0.08) x10^3/uL ESR 67 H (0-15) mm/hr D-Dimer (0.0-0.50) mg/L Sodium (135-145) mmol/L Potassium (3.5-5.1) mmol/L Chloride (98-107) mmol/L Carbon Dioxide (22-30) mmol/L Anion Gap (5-15) MEQ/L BUN (9-20) mg/dL Creatinine (0.66-1.25) mg/dL Estimated GFR ML/MIN Glucose (74-106) mg/dL POC Glucometer (74 to 106) mg/dL Hemoglobin A1c 11.67 H (4.5-6.0) % Lactic Acid (0.4-2.0) Calcium (8.4-10.2) mg/dL Total Bilirubin (0.2-1.3) mg/dL AST (17-59) U/L ALT (0-50) U/L Alkaline Phosphatase (38-126) U/L Troponin I (0.000-0.033) ng/mL NT-Pro-B Natriuret Pep (<300) pg/mL Serum Total Protein (6.3-8.2) g/dL Albumin (3.5-5.0) g/dL Procalcitonin (0.030-0.080) ng/mL 09/06/24 09/06/24 09/06/24 Range/Units 08:05 08:05 08:05 WBC (4.23-9.07) x10^3/uL RBC (4.63-6.08) x10^6/uL Hgb (13.7-17.5) g/dL Hct (40.1-51.0) % MCV (79.0-92.2) fL MCH (25.7-32.2) pg MCHC (32.3-36.5) g/dL RDW (11.6-14.4) % Plt Count (163-337) x10^3/uL MPV (9.4-12.4) fL Gran % (34.0-67.9) % Immature Gran % (Auto) (0.001-0.429) % Nucleat RBC Rel Count (0.00-0.2) % Eos # (Auto) (0.04-0.54) x10^3/uL Immature Gran # (Auto) (0.001-0.031) x10^3u/L Absolute Lymphs (auto) (1.32-3.57) x10^3/uL Absolute Monos (auto) (0.30-0.82) x10^3/uL Absolute Nucleated RBC (0.00-0.012) x10^3u/L Lymphocytes % (21.8-53.1) % Monocytes % (5.3-12.2) % Eosinophils % (0.8-7.0) % Basophils % (0.2-1.2) % Absolute Granulocytes (1.78-5.38) x10^3/uL Basophils # (0.01-0.08) x10^3/uL ESR (0-15) mm/hr D-Dimer < 0.19 (0.0-0.50) mg/L Sodium 131 L (135-145) mmol/L Potassium 3.9 (3.5-5.1) mmol/L Chloride 98 (98-107) mmol/L Carbon Dioxide 21 L (22-30) mmol/L Anion Gap 16.9 H (5-15) MEQ/L BUN 14 (9-20) mg/dL Creatinine 0.61 L (0.66-1.25) mg/dL Estimated GFR 113.4 ML/MIN Glucose 373 H (74-106) mg/dL POC Glucometer (74 to 106) mg/dL Hemoglobin A1c (4.5-6.0) % Lactic Acid (0.4-2.0) Calcium 9.2 (8.4-10.2) mg/dL Total Bilirubin 0.60 (0.2-1.3) mg/dL AST 33 (17-59) U/L ALT 39 (0-50) U/L Alkaline Phosphatase 77 (38-126) U/L Troponin I < 0.012 (0.000-0.033) ng/mL NT-Pro-B Natriuret Pep 22.4 (<300) pg/mL Serum Total Protein 6.7 (6.3-8.2) g/dL Albumin 4.0 (3.5-5.0) g/dL Procalcitonin (0.030-0.080) ng/mL 09/06/24 09/06/24 09/06/24 Range/Units 10:55 16:00 16:05 WBC (4.23-9.07) x10^3/uL RBC (4.63-6.08) x10^6/uL Hgb (13.7-17.5) g/dL Hct (40.1-51.0) % MCV (79.0-92.2) fL MCH (25.7-32.2) pg MCHC (32.3-36.5) g/dL RDW (11.6-14.4) % Plt Count (163-337) x10^3/uL MPV (9.4-12.4) fL Gran % (34.0-67.9) % Immature Gran % (Auto) (0.001-0.429) % Nucleat RBC Rel Count (0.00-0.2) % Eos # (Auto) (0.04-0.54) x10^3/uL Immature Gran # (Auto) (0.001-0.031) x10^3u/L Absolute Lymphs (auto) (1.32-3.57) x10^3/uL Absolute Monos (auto) (0.30-0.82) x10^3/uL Absolute Nucleated RBC (0.00-0.012) x10^3u/L Lymphocytes % (21.8-53.1) % Monocytes % (5.3-12.2) % Eosinophils % (0.8-7.0) % Basophils % (0.2-1.2) % Absolute Granulocytes (1.78-5.38) x10^3/uL Basophils # (0.01-0.08) x10^3/uL ESR (0-15) mm/hr D-Dimer (0.0-0.50) mg/L Sodium (135-145) mmol/L Potassium (3.5-5.1) mmol/L Chloride (98-107) mmol/L Carbon Dioxide (22-30) mmol/L Anion Gap (5-15) MEQ/L BUN (9-20) mg/dL Creatinine (0.66-1.25) mg/dL Estimated GFR ML/MIN Glucose (74-106) mg/dL POC Glucometer (74 to 106) mg/dL Hemoglobin A1c (4.5-6.0) % Lactic Acid 1.5 (0.4-2.0) Calcium (8.4-10.2) mg/dL Total Bilirubin (0.2-1.3) mg/dL AST (17-59) U/L ALT (0-50) U/L Alkaline Phosphatase (38-126) U/L Troponin I < 0.012 < 0.012 (0.000-0.033) ng/mL NT-Pro-B Natriuret Pep (<300) pg/mL Serum Total Protein (6.3-8.2) g/dL Albumin (3.5-5.0) g/dL Procalcitonin (0.030-0.080) ng/mL 09/06/24 09/06/24 Range/Units 16:05 16:15 WBC (4.23-9.07) x10^3/uL RBC (4.63-6.08) x10^6/uL Hgb (13.7-17.5) g/dL Hct (40.1-51.0) % MCV (79.0-92.2) fL MCH (25.7-32.2) pg MCHC (32.3-36.5) g/dL RDW (11.6-14.4) % Plt Count (163-337) x10^3/uL MPV (9.4-12.4) fL Gran % (34.0-67.9) % Immature Gran % (Auto) (0.001-0.429) % Nucleat RBC Rel Count (0.00-0.2) % Eos # (Auto) (0.04-0.54) x10^3/uL Immature Gran # (Auto) (0.001-0.031) x10^3u/L Absolute Lymphs (auto) (1.32-3.57) x10^3/uL Absolute Monos (auto) (0.30-0.82) x10^3/uL Absolute Nucleated RBC (0.00-0.012) x10^3u/L Lymphocytes % (21.8-53.1) % Monocytes % (5.3-12.2) % Eosinophils % (0.8-7.0) % Basophils % (0.2-1.2) % Absolute Granulocytes (1.78-5.38) x10^3/uL Basophils # (0.01-0.08) x10^3/uL ESR (0-15) mm/hr D-Dimer (0.0-0.50) mg/L Sodium (135-145) mmol/L Potassium (3.5-5.1) mmol/L Chloride (98-107) mmol/L Carbon Dioxide (22-30) mmol/L Anion Gap (5-15) MEQ/L BUN (9-20) mg/dL Creatinine (0.66-1.25) mg/dL Estimated GFR ML/MIN Glucose (74-106) mg/dL POC Glucometer 329 H (74 to 106) mg/dL Hemoglobin A1c (4.5-6.0) % Lactic Acid (0.4-2.0) Calcium (8.4-10.2) mg/dL Total Bilirubin (0.2-1.3) mg/dL AST (17-59) U/L ALT (0-50) U/L Alkaline Phosphatase (38-126) U/L Troponin I (0.000-0.033) ng/mL NT-Pro-B Natriuret Pep (<300) pg/mL Serum Total Protein (6.3-8.2) g/dL Albumin (3.5-5.0) g/dL Procalcitonin 0.235 H (0.030-0.080) ng/mL - Radiology Impressions Radiology Exams & Impressions: Radiology Procedures Category Date Time Status CHEST 1 VIEW (PORTABLE) Stat Exams 09/06/24 09:31 Completed CHEST WITH CONTRAST [CT] Stat Exams 09/06/24 12:50 Completed ECHO W/2D AND DOPPLER [US] Routine Exams 09/07/24 16:11 Ordered - Other Procedures and Tests Respiratory Therapy 09/06/24 15:48 EKG REPEAT IN AM 09/06/24 19:21 BiPap/CPAP ROUTINE BRIAN Encounter - BRIAN Encounter Attestation BRIAN Encounter Attestation: "IhavepersonallyseenandFADUMO Francis andhavediscussed pertinent aspects of their care with Blanca Stanton agree with the history, physical exam (any modifications based on my personal exam will be noted below), assessment, and plan as outlined in original note. Please see immediately below for my summary of findings and additional assessment and plan along with any meaningful corrections/explanations to the Subjective/Objective portions of the BRIAN note will be noted." My portion of the encounter took place via telemedicine. -Sepsis secondary to purulent cellulitis of right upper back in the setting of uncontrolled DM and hyperglycemia. CT did not show any abscess, patient will likely not need I&D but surgery consulted for evaluation. Vanc/zosyn pending wound culture results. Right sided chest pain atypical and likely related to cellulitis on right upper back. Trop negative x 3.
[2024-09-06] MEDS ORDERED: Zofran 4 MG/2 ML VIAL IV PRN (15:42)
[2024-09-06] MEDS: PROTONIX 40 MG IV IV SCH (17:08)
[2024-09-06] MEDS ORDERED: Narcan 0.4 MG/ML IV PRN (18:26)
[2024-09-06] MEDS ORDERED: Nitrostat 0.4 MG Tablet SL PRN (18:34)
[2024-09-06] MEDS ORDERED: XYLOCAINE 1% HCL 20 ML MDV ONE (18:40)
[2024-09-06] MEDS: ZYLOPRIM 100 MG PO SCH (18:41)
[2024-09-06] MEDS: HUMALOG SQ PRN (18:41)
[2024-09-06] MEDS: Zestril 20 MG PO SCH (18:41)
[2024-09-06] MEDS: PIPERACILLIN/TAZOBACTAM 3.375 GM in Sodium Chloride 100ML MINI-BAG PLUS 100 ML IV SCH (18:42)
[2024-09-06] MEDS: NORCO 5/325 MG PO PRN (20:38)
[2024-09-06] MEDS: VANCOMYCIN 2 GRAM/400 ML BAG 2 GM/400 ML PIGGYBACK IV SCH (21:38)
[2024-09-06 23:02] LABS: Appearance Clear (Clear); Bacteria None Seen /HPF (None Seen); Bilirubin Negative (Negative); Blood Negative (Negative); Epithelial Cells None Seen /HPF (None Seen); Glucose, Urine >=1000 mg/dL (Negative); Hyaline Casts NONE SEEN /LPF (0-2); Ketones Negative (Negative); Leukocyte Esterase Negative (Negative); Nitrite Negative (Negative); Ph 5.5 (4.6-8.0); Protein,Urine Dip Negative (Negative); RBC 0-2 /HPF (0-5); Specific Gravity 1.025 (1.005-1.030); Urobilinogen 0.2 mg/dL (0.2); WBC 0-2 /HPF (0-5)
[2024-09-07] MEDS: TYLENOL 325 MG PO PRN (00:32)
--- NOTE | 2024-09-07 04:49 | PCM.NOTE ---
Date and Time: 09/07/24 0448 Subjective Assessment: is a 54 year old maleMr. Andre is a 54 year old male with a pmhx of HLD, HTN, DMII, and depression who presented to ED 09/06/24 with complaints of a draining abscess to his right upper back and chest pain. Patient states that he noticed a raised, red his right upper back 09/01/21 that was warm to touch, he thought it was a pimple and tried to pop it the following Thursday and copious amounts of purulent drainage came out. The area has since gotten progressively bigger and has been draining constantly. He has also been experiencing constant pain which he rates 10/10 on a numerical pain scale. He also reports moderate, sharp substernal chest pain which started last night. No radiation. Associated nausea. Episodes lasting about an hour at a time. It has been relieved with morphine given in the ED, currently rating chest pain at a 0/10. No aggravating factors. He denies previous heart history or similar episodes of chest pain. Patient was a former smoker but quit in 1991. Denies fever,cough, sob, abdominal pain, OKEEFE, dizziness, N/V/D. Upon presentation patient was tachycardic and hypertensive. EKG per ED physician read showing RATE (110), Sinus Tach, NORMAL AXIS, NORMAL INTERVALS, NORMAL QRS (T wave inversion in inferior leads). CT chest with contrast demonstrates Right back subcutaneous induration as detailed presumed inflammatory/infectious. No walled off fluid collection/abscess or pathologic lymphadenopathy. Lab findings remarkable for leukocytosis with wbc at 15.5, hyponatremia in the setting of hyperglycemia with sodium at 131 and glucose at 373, Co2 at 21, and GAP at 16.9. Troponins x 2 WNL, BNP at 22.4. Patient given 324mg ASA, doxycycline, vancomycin, nitro, and morphine in ED. Admit for Back abscess and Chest pain evaluation. IP treatment with vanc/zosyn. Surgery consulted and performed I&D on 09/06/24. 09/07/24: Met with patient bedside. No longer having chest pain and pressure. Surgery performed I&D last night - pain is much improved. Wound culture with gram + ID - will continue current abx therapy with vanc/zosyn pending final results. Denies fever,cough, sob, cp, abdominal pain, OKEEFE, dizziness, N/V/D. - Review of Systems Constitutional: No Symptoms Eyes: No Symptoms Ears, Nose, & Throat: No Symptoms Respiratory: No Symptoms Cardiac: No Symptoms Abdominal/Gastrointestinal: No Symptoms Genitourinary Symptoms: No Symptoms Musculoskeletal: No Symptoms Skin: Other (Surgical incision to RU back - s/p I&D -covered with dressing CDI) Neurological: No Symptoms Psychological: No Symptoms Endocrine: No Symptoms Hematologic/Lymphatic: No Symptoms Immunological/Allergic: No Symptoms Objective Exam General Appearance: no apparent distress Neurologic Exam: alert, oriented x 3, cooperative Skin Exam: other (Surgical incision to RU back - s/p I&D -covered with dressing CDI rash to right upper chest) Eye Exam: PERRL Ears, Nose, Throat Exam: normal ENT inspection Neck Exam: normal inspection Respiratory Exam: normal breath sounds, lungs clear Cardiovascular Exam: regular rate/rhythm, normal heart sounds Gastrointestinal/Abdomen Exam: soft, normal bowel sounds Extremity Exam: normal inspection Back Exam: normal inspection Male Genitalia Exam: deferred Rectal Exam: deferred Objective Data Vital Signs: Vital Signs - 24 hr Temp Pulse Resp BP BP Pulse Ox 09/07/24 04:26 133/60 09/07/24 03:44 97.8 F 83 18 84/52 96 09/06/24 23:40 97.7 F 96 H 19 130/66 95 09/06/24 19:59 98.9 F 101 H 19 124/68 96 09/06/24 16:30 98.4 F 99 H 16 145/69 97 09/06/24 15:42 98.4 F 99 H 16 145/69 97 09/06/24 14:57 99 09/06/24 14:30 112/52 09/06/24 14:18 87 16 124/58 95 09/06/24 13:30 147/61 09/06/24 13:00 87 13 127/71 95 09/06/24 12:30 89 10 L 141/65 97 09/06/24 12:00 86 17 123/70 95 09/06/24 11:30 87 16 137/71 95 09/06/24 11:01 88 18 131/56 96 09/06/24 10:31 86 22 76/51 96 09/06/24 10:00 131/55 90 L 09/06/24 09:30 87 22 125/77 94 L 09/06/24 09:00 93 H 20 131/102 97 09/06/24 08:30 98 H 16 141/72 95 09/06/24 08:20 99 H 22 93 L 09/06/24 08:10 99 H 22 93 L 09/06/24 08:03 108 H 21 93 L 09/06/24 08:00 95 09/06/24 07:48 97.9 F 110 H 18 156/92 99 09/06/24 07:43 113 H 23 156/97 95 Pain Assessment - Last Documented Pain Intensity 8 Pain Scale Used 0-10 Pain Scale Intake and Output: Intake & Output 09/04/24 09/05/24 09/06/24 09/07/24 11:59 11:59 11:59 11:59 Intake Total 1640 Output Total 600 Balance 1040 Weight 150 kg 138.4 kg Lab Results: Lab Results-Last 24 Hours 09/06/24 09/06/24 09/06/24 Range/Units 08:00 08:00 08:05 WBC 15.5 H (4.23-9.07) x10^3/uL RBC 4.81 (4.63-6.08) x10^6/uL Hgb 14.2 (13.7-17.5) g/dL Hct 40.7 (40.1-51.0) % MCV 84.6 (79.0-92.2) fL MCH 29.5 (25.7-32.2) pg MCHC 34.9 (32.3-36.5) g/dL RDW 12.9 (11.6-14.4) % Plt Count 210 (163-337) x10^3/uL MPV 9.7 (9.4-12.4) fL Gran % 73.1 H (34.0-67.9) % Immature Gran % (Auto) 0.5 H (0.001-0.429) % Nucleat RBC Rel Count 0.0 (0.00-0.2) % Eos # (Auto) 0.15 (0.04-0.54) x10^3/uL Immature Gran # (Auto) 0.08 H (0.001-0.031) x10^3u/L Absolute Lymphs (auto) 2.44 (1.32-3.57) x10^3/uL Absolute Monos (auto) 1.44 H (0.30-0.82) x10^3/uL Absolute Nucleated RBC 0.00 (0.00-0.012) x10^3u/L Lymphocytes % 15.8 L (21.8-53.1) % Monocytes % 9.3 (5.3-12.2) % Eosinophils % 1.0 (0.8-7.0) % Basophils % 0.3 (0.2-1.2) % Absolute Granulocytes 11.32 H (1.78-5.38) x10^3/uL Basophils # 0.04 (0.01-0.08) x10^3/uL ESR 67 H (0-15) mm/hr D-Dimer (0.0-0.50) mg/L Sodium (135-145) mmol/L Potassium (3.5-5.1) mmol/L Chloride (98-107) mmol/L Carbon Dioxide (22-30) mmol/L Anion Gap (5-15) MEQ/L BUN (9-20) mg/dL Creatinine (0.66-1.25) mg/dL Estimated GFR ML/MIN Glucose (74-106) mg/dL POC Glucometer (74 to 106) mg/dL Hemoglobin A1c 11.67 H (4.5-6.0) % Lactic Acid (0.4-2.0) Calcium (8.4-10.2) mg/dL Total Bilirubin (0.2-1.3) mg/dL AST (17-59) U/L ALT (0-50) U/L Alkaline Phosphatase (38-126) U/L Troponin I (0.000-0.033) ng/mL NT-Pro-B Natriuret Pep (<300) pg/mL Serum Total Protein (6.3-8.2) g/dL Albumin (3.5-5.0) g/dL Procalcitonin (0.030-0.080) ng/mL Urine Color (Yellow) Urine Appearance (Clear) Urine pH (4.6-8.0) Ur Specific [place] (1.005-1.030) Urine Protein (Negative) Urine Glucose (UA) (Negative) mg/dL Urine Ketones (Negative) Urine Blood (Negative) Urine Nitrite (Negative) Urine Bilirubin (Negative) Urine Urobilinogen (0.2) mg/dL Ur Leukocyte Esterase (Negative) U Hyaline Cast (Auto) (0-2) /LPF Urine Microscopic RBC (0-5) /HPF Urine Microscopic WBC (0-5) /HPF Ur Epithelial Cells (None Seen) /HPF Urine Bacteria (None Seen) /HPF Urine Culture Reflexed (NO) 09/06/24 09/06/24 09/06/24 Range/Units 08:05 08:05 08:05 WBC (4.23-9.07) x10^3/uL RBC (4.63-6.08) x10^6/uL Hgb (13.7-17.5) g/dL Hct (40.1-51.0) % MCV (79.0-92.2) fL MCH (25.7-32.2) pg MCHC (32.3-36.5) g/dL RDW (11.6-14.4) % Plt Count (163-337) x10^3/uL MPV (9.4-12.4) fL Gran % (34.0-67.9) % Immature Gran % (Auto) (0.001-0.429) % Nucleat RBC Rel Count (0.00-0.2) % Eos # (Auto) (0.04-0.54) x10^3/uL Immature Gran # (Auto) (0.001-0.031) x10^3u/L Absolute Lymphs (auto) (1.32-3.57) x10^3/uL Absolute Monos (auto) (0.30-0.82) x10^3/uL Absolute Nucleated RBC (0.00-0.012) x10^3u/L Lymphocytes % (21.8-53.1) % Monocytes % (5.3-12.2) % Eosinophils % (0.8-7.0) % Basophils % (0.2-1.2) % Absolute Granulocytes (1.78-5.38) x10^3/uL Basophils # (0.01-0.08) x10^3/uL ESR (0-15) mm/hr D-Dimer < 0.19 (0.0-0.50) mg/L Sodium 131 L (135-145) mmol/L Potassium 3.9 (3.5-5.1) mmol/L Chloride 98 (98-107) mmol/L Carbon Dioxide 21 L (22-30) mmol/L Anion Gap 16.9 H (5-15) MEQ/L BUN 14 (9-20) mg/dL Creatinine 0.61 L (0.66-1.25) mg/dL Estimated GFR 113.4 ML/MIN Glucose 373 H (74-106) mg/dL POC Glucometer (74 to 106) mg/dL Hemoglobin A1c (4.5-6.0) % Lactic Acid (0.4-2.0) Calcium 9.2 (8.4-10.2) mg/dL Total Bilirubin 0.60 (0.2-1.3) mg/dL AST 33 (17-59) U/L ALT 39 (0-50) U/L Alkaline Phosphatase 77 (38-126) U/L Troponin I < 0.012 (0.000-0.033) ng/mL NT-Pro-B Natriuret Pep 22.4 (<300) pg/mL Serum Total Protein 6.7 (6.3-8.2) g/dL Albumin 4.0 (3.5-5.0) g/dL Procalcitonin (0.030-0.080) ng/mL Urine Color (Yellow) Urine Appearance (Clear) Urine pH (4.6-8.0) Ur Specific [place] (1.005-1.030) Urine Protein (Negative) Urine Glucose (UA) (Negative) mg/dL Urine Ketones (Negative) Urine Blood (Negative) Urine Nitrite (Negative) Urine Bilirubin (Negative) Urine Urobilinogen (0.2) mg/dL Ur Leukocyte Esterase (Negative) U Hyaline Cast (Auto) (0-2) /LPF Urine Microscopic RBC (0-5) /HPF Urine Microscopic WBC (0-5) /HPF Ur Epithelial Cells (None Seen) /HPF Urine Bacteria (None Seen) /HPF Urine Culture Reflexed (NO) 09/06/24 09/06/24 09/06/24 Range/Units 10:55 16:00 16:05 WBC (4.23-9.07) x10^3/uL RBC (4.63-6.08) x10^6/uL Hgb (13.7-17.5) g/dL Hct (40.1-51.0) % MCV (79.0-92.2) fL MCH (25.7-32.2) pg MCHC (32.3-36.5) g/dL RDW (11.6-14.4) % Plt Count (163-337) x10^3/uL MPV (9.4-12.4) fL Gran % (34.0-67.9) % Immature Gran % (Auto) (0.001-0.429) % Nucleat RBC Rel Count (0.00-0.2) % Eos # (Auto) (0.04-0.54) x10^3/uL Immature Gran # (Auto) (0.001-0.031) x10^3u/L Absolute Lymphs (auto) (1.32-3.57) x10^3/uL Absolute Monos (auto) (0.30-0.82) x10^3/uL Absolute Nucleated RBC (0.00-0.012) x10^3u/L Lymphocytes % (21.8-53.1) % Monocytes % (5.3-12.2) % Eosinophils % (0.8-7.0) % Basophils % (0.2-1.2) % Absolute Granulocytes (1.78-5.38) x10^3/uL Basophils # (0.01-0.08) x10^3/uL ESR (0-15) mm/hr D-Dimer (0.0-0.50) mg/L Sodium (135-145) mmol/L Potassium (3.5-5.1) mmol/L Chloride (98-107) mmol/L Carbon Dioxide (22-30) mmol/L Anion Gap (5-15) MEQ/L BUN (9-20) mg/dL Creatinine (0.66-1.25) mg/dL Estimated GFR ML/MIN Glucose (74-106) mg/dL POC Glucometer (74 to 106) mg/dL Hemoglobin A1c (4.5-6.0) % Lactic Acid 1.5 (0.4-2.0) Calcium (8.4-10.2) mg/dL Total Bilirubin (0.2-1.3) mg/dL AST (17-59) U/L ALT (0-50) U/L Alkaline Phosphatase (38-126) U/L Troponin I < 0.012 < 0.012 (0.000-0.033) ng/mL NT-Pro-B Natriuret Pep (<300) pg/mL Serum Total Protein (6.3-8.2) g/dL Albumin (3.5-5.0) g/dL Procalcitonin (0.030-0.080) ng/mL Urine Color (Yellow) Urine Appearance (Clear) Urine pH (4.6-8.0) Ur Specific [place] (1.005-1.030) Urine Protein (Negative) Urine Glucose (UA) (Negative) mg/dL Urine Ketones (Negative) Urine Blood (Negative) Urine Nitrite (Negative) Urine Bilirubin (Negative) Urine Urobilinogen (0.2) mg/dL Ur Leukocyte Esterase (Negative) U Hyaline Cast (Auto) (0-2) /LPF Urine Microscopic RBC (0-5) /HPF Urine Microscopic WBC (0-5) /HPF Ur Epithelial Cells (None Seen) /HPF Urine Bacteria (None Seen) /HPF Urine Culture Reflexed (NO) 09/06/24 09/06/24 09/06/24 Range/Units 16:05 16:15 20:46 WBC (4.23-9.07) x10^3/uL RBC (4.63-6.08) x10^6/uL Hgb (13.7-17.5) g/dL Hct (40.1-51.0) % MCV (79.0-92.2) fL MCH (25.7-32.2) pg MCHC (32.3-36.5) g/dL RDW (11.6-14.4) % Plt Count (163-337) x10^3/uL MPV (9.4-12.4) fL Gran % (34.0-67.9) % Immature Gran % (Auto) (0.001-0.429) % Nucleat RBC Rel Count (0.00-0.2) % Eos # (Auto) (0.04-0.54) x10^3/uL Immature Gran # (Auto) (0.001-0.031) x10^3u/L Absolute Lymphs (auto) (1.32-3.57) x10^3/uL Absolute Monos (auto) (0.30-0.82) x10^3/uL Absolute Nucleated RBC (0.00-0.012) x10^3u/L Lymphocytes % (21.8-53.1) % Monocytes % (5.3-12.2) % Eosinophils % (0.8-7.0) % Basophils % (0.2-1.2) % Absolute Granulocytes (1.78-5.38) x10^3/uL Basophils # (0.01-0.08) x10^3/uL ESR (0-15) mm/hr D-Dimer (0.0-0.50) mg/L Sodium (135-145) mmol/L Potassium (3.5-5.1) mmol/L Chloride (98-107) mmol/L Carbon Dioxide (22-30) mmol/L Anion Gap (5-15) MEQ/L BUN (9-20) mg/dL Creatinine (0.66-1.25) mg/dL Estimated GFR ML/MIN Glucose (74-106) mg/dL POC Glucometer 329 H 401 H (74 to 106) mg/dL Hemoglobin A1c (4.5-6.0) % Lactic Acid (0.4-2.0) Calcium (8.4-10.2) mg/dL Total Bilirubin (0.2-1.3) mg/dL AST (17-59) U/L ALT (0-50) U/L Alkaline Phosphatase (38-126) U/L Troponin I (0.000-0.033) ng/mL NT-Pro-B Natriuret Pep (<300) pg/mL Serum Total Protein (6.3-8.2) g/dL Albumin (3.5-5.0) g/dL Procalcitonin 0.235 H (0.030-0.080) ng/mL Urine Color (Yellow) Urine Appearance (Clear) Urine pH (4.6-8.0) Ur Specific [place] (1.005-1.030) Urine Protein (Negative) Urine Glucose (UA) (Negative) mg/dL Urine Ketones (Negative) Urine Blood (Negative) Urine Nitrite (Negative) Urine Bilirubin (Negative) Urine Urobilinogen (0.2) mg/dL Ur Leukocyte Esterase (Negative) U Hyaline Cast (Auto) (0-2) /LPF Urine Microscopic RBC (0-5) /HPF Urine Microscopic WBC (0-5) /HPF Ur Epithelial Cells (None Seen) /HPF Urine Bacteria (None Seen) /HPF Urine Culture Reflexed (NO) 09/06/24 Range/Units 22:45 WBC (4.23-9.07) x10^3/uL RBC (4.63-6.08) x10^6/uL Hgb (13.7-17.5) g/dL Hct (40.1-51.0) % MCV (79.0-92.2) fL MCH (25.7-32.2) pg MCHC (32.3-36.5) g/dL RDW (11.6-14.4) % Plt Count (163-337) x10^3/uL MPV (9.4-12.4) fL Gran % (34.0-67.9) % Immature Gran % (Auto) (0.001-0.429) % Nucleat RBC Rel Count (0.00-0.2) % Eos # (Auto) (0.04-0.54) x10^3/uL Immature Gran # (Auto) (0.001-0.031) x10^3u/L Absolute Lymphs (auto) (1.32-3.57) x10^3/uL Absolute Monos (auto) (0.30-0.82) x10^3/uL Absolute Nucleated RBC (0.00-0.012) x10^3u/L Lymphocytes % (21.8-53.1) % Monocytes % (5.3-12.2) % Eosinophils % (0.8-7.0) % Basophils % (0.2-1.2) % Absolute Granulocytes (1.78-5.38) x10^3/uL Basophils # (0.01-0.08) x10^3/uL ESR (0-15) mm/hr D-Dimer (0.0-0.50) mg/L Sodium (135-145) mmol/L Potassium (3.5-5.1) mmol/L Chloride (98-107) mmol/L Carbon Dioxide (22-30) mmol/L Anion Gap (5-15) MEQ/L BUN (9-20) mg/dL Creatinine (0.66-1.25) mg/dL Estimated GFR ML/MIN Glucose (74-106) mg/dL POC Glucometer (74 to 106) mg/dL Hemoglobin A1c (4.5-6.0) % Lactic Acid (0.4-2.0) Calcium (8.4-10.2) mg/dL Total Bilirubin (0.2-1.3) mg/dL AST (17-59) U/L ALT (0-50) U/L Alkaline Phosphatase (38-126) U/L Troponin I (0.000-0.033) ng/mL NT-Pro-B Natriuret Pep (<300) pg/mL Serum Total Protein (6.3-8.2) g/dL Albumin (3.5-5.0) g/dL Procalcitonin (0.030-0.080) ng/mL Urine Color Yellow (Yellow) Urine Appearance Clear (Clear) Urine pH 5.5 (4.6-8.0) Ur Specific [place] 1.025 (1.005-1.030) Urine Protein Negative (Negative) Urine Glucose (UA) >=1000 A (Negative) mg/dL Urine Ketones Negative (Negative) Urine Blood Negative (Negative) Urine Nitrite Negative (Negative) Urine Bilirubin Negative (Negative) Urine Urobilinogen 0.2 (0.2) mg/dL Ur Leukocyte Esterase Negative (Negative) U Hyaline Cast (Auto) NONE SEEN (0-2) /LPF Urine Microscopic RBC 0-2 (0-5) /HPF Urine Microscopic WBC 0-2 (0-5) /HPF Ur Epithelial Cells None Seen (None Seen) /HPF Urine Bacteria None Seen (None Seen) /HPF Urine Culture Reflexed NO (NO) Radiology Exams: Radiology Procedures Category Date Time Status CHEST 1 VIEW (PORTABLE) Stat Exams 09/06/24 09:31 Completed CHEST WITH CONTRAST [CT] Stat Exams 09/06/24 12:50 Completed ECHO W/2D AND DOPPLER [US] Routine Exams 09/07/24 16:11 Ordered Assessment/Plan (1) Chest pain Current Visit: Yes Status: Acute Assessment & Plan: -EKG per ED physician read showing RATE (110), Sinus Tach, NORMAL AXIS, NORMAL INTERVALS, NORMAL QRS (T wave inversion in inferior leads) -risk factors of HTN, DM, BMI>30, former smoker, HLD - heart score of 5 -CT chest with contrast demonstrates Right back subcutaneous induration as detailed presumed inflammatory/infectious. No walled off fluid collection/abscess or pathologic lymphadenopathy -obs and monitor on tele overnight -Trops neg x 3 -Pain relieved with morphine -Echo -pain control with nitro/morphine 09/07: -Resolved -Echo pending -EKG NS Code(s): R07.9 - CHEST PAIN, UNSPECIFIED (2) Sepsis Current Visit: Yes Status: Acute Assessment & Plan: -Most likely secondary to back wound -CT Chest reviewed showing right back subcutaneous induration as detailed presumed inflammatory/infectious. No walled off fluid collection/abscess or pathologic lymphadenopathy -meets criteria with tachycardia, tachypnea, suspected source of infection, WBC at 15.5 -UA, pct, ESR, CRP, blood cultures x 2, lactic acid -Surgery consulted for wound evaluation -wound cultures ordered and pending -Doxy and Vanc given in ED- continue vanc/zosyn -target map >65 09/07: -WBC reviewed and down-trending 12.8<15.5 -Wound culture with gram + ID - continue vanc/zosyn for now- follow cultures -LA reviewed and WNL -ESR reviewed and elevated at 67 -procal reviewed and elevated -Blood cultures pending ## Cellulitis -see sepsis (3) Back abscess Current Visit: Yes Status: Acute Assessment & Plan: -see sepsis - no abscess shown on CT Code(s): L02.212 - CUTANEOUS ABSCESS OF BACK [ANY PART, EXCEPT BUTTOCK] (4) Hyponatremia Current Visit: Yes Status: Acute Assessment & Plan: -In the setting of hyperglycemia -received IVF in ED -will monitor, most likely will resolve as glucose levels improve 09/07: -Resolved Code(s): E87.1 - HYPO-OSMOLALITY AND HYPONATREMIA (5) HTN (hypertension) Current Visit: Yes Status: Acute Assessment & Plan: -continue home meds Code(s): I10 - ESSENTIAL (PRIMARY) HYPERTENSION (6) Type 2 diabetes mellitus Current Visit: Yes Status: Acute Assessment & Plan: -With hyperglycemia on arrival -ADA diet -SSI -high dose -Hold oral meds due to contrast -accuchecks -A1c at 11.69 - discussed the importance of good glycemic control - patient on oral medications at home -declines insulin therapy (7) HLD (hyperlipidemia) Current Visit: Yes Status: Acute Assessment & Plan: -continue home regimen Code(s): E78.5 - HYPERLIPIDEMIA, UNSPECIFIED (8) Depression Current Visit: Yes Status: Acute Assessment & Plan: -Patient states he does not take prescribed medication Code(s): F32.A - DEPRESSION, UNSPECIFIED Code(s): R07.9 - CHEST PAIN, UNSPECIFIED (2) Sepsis Current Visit: Yes Status: Acute (3) Back abscess Current Visit: Yes Status: Acute Code(s): L02.212 - CUTANEOUS ABSCESS OF BACK [ANY PART, EXCEPT BUTTOCK] (4) Hyponatremia Current Visit: Yes Status: Acute Code(s): E87.1 - HYPO-OSMOLALITY AND HYPONATREMIA (5) HTN (hypertension) Current Visit: Yes Status: Acute Code(s): I10 - ESSENTIAL (PRIMARY) HYPERTENSION (6) Type 2 diabetes mellitus Current Visit: Yes Status: Acute (7) HLD (hyperlipidemia) Current Visit: Yes Status: Acute Code(s): E78.5 - HYPERLIPIDEMIA, UNSPECIFIED (8) Depression Current Visit: Yes Status: Acute Code(s): F32.A - DEPRESSION, UNSPECIFIED
[2024-09-07 05:06] LABS: Absolute Neutrophil Ct (ANC) 8.91 x10^3/uL (1.78-5.38); BASOPHIL % 0.2 % (0.2-1.2); Basophil (Absolute #) 0.02 x10^3/uL (0.01-0.08); Eosinophil % 1.6 % (0.8-7.0); Eosinophil (Absolute #) 0.21 x10^3/uL (0.04-0.54); Hematocrit 39.3 % (40.1-51.0); IMMATURE GRAN # 0.05 x10^3u/L (0.001-0.031); IMMATURE GRAN % 0.4 % (0.001-0.429); Lymphocyte (Absolute #) 2.41 x10^3/uL (1.32-3.57); Lymphocytes % 18.9 % (21.8-53.1); Mean Cell Volume 86.9 fL (79.0-92.2); Mean Corpuscular Hemoglobin 28.8 pg (25.7-32.2); Mean Corpuscular Hgb Concent. 33.1 g/dL (32.3-36.5); Mean Platelet Volume 9.9 fL (9.4-12.4); Monocyte (Absolute #) 1.18 x10^3/uL (0.30-0.82); Monocytes % 9.2 % (5.3-12.2); Neutrophil % 69.7 % (34.0-67.9); Platelet Count 207 x10^3/uL (163-337); Red Blood Count 4.52 x10^6/uL (4.63-6.08); Red Cell Distribution Width 13.1 % (11.6-14.4); White Blood Count 12.8 x10^3/uL (4.23-9.07)
[2024-09-07 05:35] LABS: ALBUMIN 3.9 g/dL (3.5-5.0); ANION GAP 10.7 MEQ/L (5-15); BILIRUBIN,TOTAL 0.6 mg/dL (0.2-1.3); Calcium 8.9 mg/dL (8.4-10.2); Creatinine 1 0.82 mg/dL (0.66-1.25); EST GLOMERULAR FILTRATION RATE 103.7 ML/MIN; Potassium 3.8 mmol/L (3.5-5.1)
[2024-09-07] MEDS: PHARMACY DOSING REQUIRED: VANCOMYCIN IV ONE (07:21)
[2024-09-07] MEDS: HOLD METFORMIN PRODUCTS FOR 48 HOURS MC SCH (07:21)
[2024-09-07] MEDS: MORPHINE SULFATE 2 MG INJ IM ONE (07:22)
[2024-09-07] MEDS: HUMALOG SQ SCH (08:20)
[2024-09-07] MEDS: ENOXAPARIN SODIUM SQ SCH (09:01)
[2024-09-07] MEDS: PIPERACILLIN/TAZOBACTAM 3.375 GM in Sodium Chloride 100ML MINI-BAG PLUS 100 ML IV SCH (09:01)
[2024-09-07] MEDS: Robaxin PO SCH (09:01)
[2024-09-07] MEDS: ISOPTIN SR PO SCH (09:01)
[2024-09-07] MEDS ORDERED: VERAPAMIL HCL 120 MG PO SCH (10:00)
[2024-09-07] MEDS: Lantus Insulin SQ SCH (10:47)
--- NOTE | 2024-09-07 19:33 | OP ---
DATE/TIME: 09/06/2024 PREOPERATIVE DIAGNOSIS: Right upper back abscess. POSTOPERATIVE DIAGNOSIS: Right upper back abscess. PROCEDURE: Incision and drainage of a right upper back abscess. SURGEON: Darryl Morrison DO DESCRIPTION OF PROCEDURE AND FINDINGS: The patient was turned on his left side on the bed. The right upper back was prepped and draped in sterile fashion. Time-out was called. I injected lidocaine into the skin overlying the abscess and then created an elliptical incision overlying it with a 10-blade, dissected down to subcutaneous tissues to express an abscess pocket and I flushed the abscess cavity with saline. Once I broke up any loculations and deemed it cleaned out, I packed it with some 1/2-inch Iodoform gauze for hemostasis. Dressings were applied. He tolerated the procedure well.
--- NOTE | 2024-09-07 19:34 | CONS ---
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 No other systemic symptoms noted. He presents to [facility] for management. Surgery was consulted for a possible I and D. PAST MEDICAL HISTORY: Unremarkable. PAST SURGICAL HISTORY: Unremarkable. RADIOGRAPHS: Imaging was reviewed and did not show a definite fluid collection, but did show inflammation at the site. PHYSICAL EXAMINATION: GENERAL: Alert and oriented. CHEST: Nonlabored breathing. CARDIOVASCULAR: Regular rate and rhythm. SKIN: A carbuncle on the right upper back with some purulent drainage. ASSESSMENT: Abscess and carbuncle of the right upper back with some cellulitis. PLAN: I and D is done at the bedside. Continue IV antibiotics. Packing can be removed tomorrow. He is okay to discharge from our perspective. Can follow up in the office as needed.
[2024-09-07] MEDS: TROUGH DRUG LEVELS IJ ONE (21:38)
[2024-09-08 06:11] LABS: Absolute Neutrophil Ct (ANC) 5.86 x10^3/uL (1.78-5.38); BASOPHIL % 0.2 % (0.2-1.2); Basophil (Absolute #) 0.02 x10^3/uL (0.01-0.08); Eosinophil % 2.5 % (0.8-7.0); Eosinophil (Absolute #) 0.22 x10^3/uL (0.04-0.54); Hematocrit 37.1 % (40.1-51.0); Hemoglobin 12.4 g/dL (13.7-17.5); IMMATURE GRAN # 0.04 x10^3u/L (0.001-0.031); IMMATURE GRAN % 0.5 % (0.001-0.429); Lymphocyte (Absolute #) 1.93 x10^3/uL (1.32-3.57); Lymphocytes % 21.8 % (21.8-53.1); Mean Cell Volume 87.1 fL (79.0-92.2); Mean Corpuscular Hemoglobin 29.1 pg (25.7-32.2); Mean Corpuscular Hgb Concent. 33.4 g/dL (32.3-36.5); Mean Platelet Volume 9.5 fL (9.4-12.4); Platelet Count 197 x10^3/uL (163-337); Red Blood Count 4.26 x10^6/uL (4.63-6.08); Red Cell Distribution Width 13.2 % (11.6-14.4); White Blood Count 8.9 x10^3/uL (4.23-9.07)
[2024-09-08 06:25] LABS: ALBUMIN 3.6 g/dL (3.5-5.0); ANION GAP 11.8 MEQ/L (5-15); BILIRUBIN,TOTAL 0.5 mg/dL (0.2-1.3); Calcium 8.8 mg/dL (8.4-10.2); Creatinine 1 0.7 mg/dL (0.66-1.25); EST GLOMERULAR FILTRATION RATE 108.8 ML/MIN; Potassium 4.3 mmol/L (3.5-5.1); Total Protein 6.6 g/dL (6.3-8.2)
[2024-09-08 07:09] VITALS: BP 129/60; PULSE 82; RESP 16; TEMP 96.6; O2SAT 96
[2024-09-08] MEDS: Lantus Insulin SQ SCH (10:04)
--- NOTE | 2024-09-08 10:08 | PCM.DS ---
Discharge Summary Date of Admission: 09/06/24 14:55 Date of Discharge: 09/08/24 Admitting Physician: BEKAH LOPEZ MD Consults: Consults on Case 09/06/24 15:42 Consult Surgery ROUTINE Primary Care Provider: [facility] Allergies Allergies lansoprazole [From Prevacid] Allergy (Verified 09/06/24 07:43) Hospital Summary - Hospital Course Hospital Course: Mr. Andre is a 54 year old male with a pmhx of HLD, HTN, DMII, and depression who presented to ED 09/06/24 with complaints of a draining abscess to his right upper back and chest pain. Patient states that he noticed a raised, red pimple on his right upper back 09/01/21 that was warm to touch, he thought it was a pimple and tried to pop it the following Thursday and copious amounts of purulent drainage came out. The area had since gotten progressively bigger and had been draining constantly. He had also been experiencing constant pain which he rates 10/10 on a numerical pain scale. He also reported moderate, sharp right sided chest pain. He denies previous heart history or similar episodes of chest pain. Patient was a former smoker but quit in 1991. Denies fever,cough, sob, abdominal pain, [place], dizziness, N/V/D. Upon presentation patient was tachycardic and hypertensive. EKG per ED physician read showing RATE (110), Sinus Tach, NORMAL AXIS, NORMAL INTERVALS, NORMAL QRS (T wave inversion in inferior leads). CT chest with contrast demonstrated right back subcutaneous induration as detailed presumed inflammatory/infectious. No walled off fluid collection/abscess or pathologic lymphadenopathy. Lab findings remarkable for leukocytosis with wbc at 15.5, hyponatremia in the setting of hyperglycemia with sodium at 131 and glucose at 373, Co2 at 21, and GAP at 16.9. Troponins x 2 WNL, BNP at 22.4. Patient given 324mg ASA, doxycycline, vancomycin, nitro, and morphine in ED. Admitted for Back abscess and Chest pain evaluation. IP treatment with vanc/zosyn. Surgery consulted and performed I&D on 09/06/24. Patient's culture has returned with MSSA therefore he will be discharged on keflex for 10 days. Patient has been taking metformin and glipizide for his DM but he had persistent hyperglycemia with A1C of more than 11. Patient was very reluctant to start insulin however I discussed this was necessary, especially in the context of infection. 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 He agreed to once a day lantus which I have prescribed. He was recommended to continue his metofrmin but discontinue his glipizide. He was instructed to check his blood sugars at least once daily in the fasting state. He said he will be getting a new PCP [facility] but he has to call to make an appointment. His will be able to do the packing required for his abscess, as directed by surgery. He was discharged in a stable condition. - Vitals & Intake/Output Vital Signs: Vital Signs Temperature 96.6 F 09/08/24 07:08 Pulse Rate 82 09/08/24 07:08 Respiratory Rate 16 09/08/24 07:08 Blood Pressure 129/60 09/08/24 07:08 O2 Sat by Pulse Oximetry 96 09/08/24 07:08 Intake & Output: Intake & Output 09/05/24 09/06/24 09/07/24 09/08/24 11:59 11:59 11:59 11:59 Intake Total 2840 1780 Output Total 600 Balance 2240 1780 Weight 150 kg 141.7 kg 141.3 kg - Lab Result Diagrams: 09/08/24 05:44 09/08/24 05:44 Lab Results-Last 24 Hrs: Lab Results-Last 24 Hours 09/07/24 09/07/24 09/07/24 Range/Units 11:17 16:33 20:47 WBC (4.23-9.07) x10^3/uL RBC (4.63-6.08) x10^6/uL Hgb (13.7-17.5) g/dL Hct (40.1-51.0) % MCV (79.0-92.2) fL MCH (25.7-32.2) pg MCHC (32.3-36.5) g/dL RDW (11.6-14.4) % Plt Count (163-337) x10^3/uL MPV (9.4-12.4) fL Gran % (34.0-67.9) % Immature Gran % (Auto) (0.001-0.429) % Nucleat RBC Rel Count (0.00-0.2) % Eos # (Auto) (0.04-0.54) x10^3/uL Immature Gran # (Auto) (0.001-0.031) x10^3u/L Absolute Lymphs (auto) (1.32-3.57) x10^3/uL Absolute Monos (auto) (0.30-0.82) x10^3/uL Absolute Nucleated RBC (0.00-0.012) x10^3u/L Lymphocytes % (21.8-53.1) % Monocytes % (5.3-12.2) % Eosinophils % (0.8-7.0) % Basophils % (0.2-1.2) % Absolute Granulocytes (1.78-5.38) x10^3/uL Basophils # (0.01-0.08) x10^3/uL Sodium (135-145) mmol/L Potassium (3.5-5.1) mmol/L Chloride (98-107) mmol/L Carbon Dioxide (22-30) mmol/L Anion Gap (5-15) MEQ/L BUN (9-20) mg/dL Creatinine (0.66-1.25) mg/dL Estimated GFR ML/MIN Glucose (74-106) mg/dL POC Glucometer 371 H 266 H 400 H (74 to 106) mg/dL Calcium (8.4-10.2) mg/dL Total Bilirubin (0.2-1.3) mg/dL AST (17-59) U/L ALT (0-50) U/L Alkaline Phosphatase (38-126) U/L Serum Total Protein (6.3-8.2) g/dL Albumin (3.5-5.0) g/dL Vancomycin Trough (10-20) ug/mL 09/07/24 09/08/24 09/08/24 Range/Units 21:30 05:44 05:44 WBC 8.9 (4.23-9.07) x10^3/uL RBC 4.26 L (4.63-6.08) x10^6/uL Hgb 12.4 L (13.7-17.5) g/dL Hct 37.1 L (40.1-51.0) % MCV 87.1 (79.0-92.2) fL MCH 29.1 (25.7-32.2) pg MCHC 33.4 (32.3-36.5) g/dL RDW 13.2 (11.6-14.4) % Plt Count 197 (163-337) x10^3/uL MPV 9.5 (9.4-12.4) fL Gran % 66.0 (34.0-67.9) % Immature Gran % (Auto) 0.5 H (0.001-0.429) % Nucleat RBC Rel Count 0.0 (0.00-0.2) % Eos # (Auto) 0.22 (0.04-0.54) x10^3/uL Immature Gran # (Auto) 0.04 H (0.001-0.031) x10^3u/L Absolute Lymphs (auto) 1.93 (1.32-3.57) x10^3/uL Absolute Monos (auto) 0.80 (0.30-0.82) x10^3/uL Absolute Nucleated RBC 0.00 (0.00-0.012) x10^3u/L Lymphocytes % 21.8 (21.8-53.1) % Monocytes % 9.0 (5.3-12.2) % Eosinophils % 2.5 (0.8-7.0) % Basophils % 0.2 (0.2-1.2) % Absolute Granulocytes 5.86 H (1.78-5.38) x10^3/uL Basophils # 0.02 (0.01-0.08) x10^3/uL Sodium 136 (135-145) mmol/L Potassium 4.3 (3.5-5.1) mmol/L Chloride 105 (98-107) mmol/L Carbon Dioxide 24 (22-30) mmol/L Anion Gap 11.8 (5-15) MEQ/L BUN 10 (9-20) mg/dL Creatinine 0.70 (0.66-1.25) mg/dL Estimated GFR 108.8 ML/MIN Glucose 260 H (74-106) mg/dL POC Glucometer (74 to 106) mg/dL Calcium 8.8 (8.4-10.2) mg/dL Total Bilirubin 0.50 (0.2-1.3) mg/dL AST 27 (17-59) U/L ALT 31 (0-50) U/L Alkaline Phosphatase 69 (38-126) U/L Serum Total Protein 6.6 (6.3-8.2) g/dL Albumin 3.6 (3.5-5.0) g/dL Vancomycin Trough 9.72 L (10-20) ug/mL 09/08/24 Range/Units 06:58 WBC (4.23-9.07) x10^3/uL RBC (4.63-6.08) x10^6/uL Hgb (13.7-17.5) g/dL Hct (40.1-51.0) % MCV (79.0-92.2) fL MCH (25.7-32.2) pg MCHC (32.3-36.5) g/dL RDW (11.6-14.4) % Plt Count (163-337) x10^3/uL MPV (9.4-12.4) fL Gran % (34.0-67.9) % Immature Gran % (Auto) (0.001-0.429) % Nucleat RBC Rel Count (0.00-0.2) % Eos # (Auto) (0.04-0.54) x10^3/uL Immature Gran # (Auto) (0.001-0.031) x10^3u/L Absolute Lymphs (auto) (1.32-3.57) x10^3/uL Absolute Monos (auto) (0.30-0.82) x10^3/uL Absolute Nucleated RBC (0.00-0.012) x10^3u/L Lymphocytes % (21.8-53.1) % Monocytes % (5.3-12.2) % Eosinophils % (0.8-7.0) % Basophils % (0.2-1.2) % Absolute Granulocytes (1.78-5.38) x10^3/uL Basophils # (0.01-0.08) x10^3/uL Sodium (135-145) mmol/L Potassium (3.5-5.1) mmol/L Chloride (98-107) mmol/L Carbon Dioxide (22-30) mmol/L Anion Gap (5-15) MEQ/L BUN (9-20) mg/dL Creatinine (0.66-1.25) mg/dL Estimated GFR ML/MIN Glucose (74-106) mg/dL POC Glucometer 232 H (74 to 106) mg/dL Calcium (8.4-10.2) mg/dL Total Bilirubin (0.2-1.3) mg/dL AST (17-59) U/L ALT (0-50) U/L Alkaline Phosphatase (38-126) U/L Serum Total Protein (6.3-8.2) g/dL Albumin (3.5-5.0) g/dL Vancomycin Trough (10-20) ug/mL Micro Results-Entire Visit: Microbiology 09/06/24 16:56 Wound Culture - Final Drainage - Right Back Staphylococcus Aureus 09/06/24 16:10 Blood Culture - Preliminary Blood 09/06/24 16:05 Blood Culture - Preliminary Blood Accuchecks Date 09/08/24 Date 09/07/24 Date 09/07/24 Time 11:17 - Radiology Exams Ordered Rad Exams-Entire Visit: Radiology Procedures Category Date Time Status CHEST 1 VIEW (PORTABLE) Stat Exams 09/06/24 09:31 Completed CHEST WITH CONTRAST [CT] Stat Exams 09/06/24 12:50 Completed ECHO W/2D AND DOPPLER [US] Routine Exams 09/07/24 16:11 Taken - Procedures and Test Procedures and Tests throughout Hospitalization: Therapy Orders & Screens 09/06/24 15:48 EKG REPEAT IN AM Comment: Diagnosis: Chest pain, wound to right upper back 09/06/24 16:51 OT Screen per Nursing Assess ONCE Comment: Protocol Order Physician Instructions: Greater than 3 points order OT Admission Screening Reason For Exam: Triggered on Admission Diagnosis: Chest pain, wound to right upper back Open Wound/Cellutlitis/Pressure Ulcers: Yes Acute Fx/ORIF/Change in wt bearing status: No Severe MUSCULOSKELETAL pain: No ADL Dysfunction: No Acute CVA w/Hemiparesis/Hemiplegia: No Decreased Functional Mobility/Strength: No Sprain/Strain: No Acute Post-op Mobility Dysfunction: No Total Points: 5 PT Screen per Nursing Assess ONCE Comment: Protocol Order Physician Instructions: Greater than 3 points order PT Admission Screenin Reason For Exam: Triggered on Admission Diagnosis: Chest pain, wound to right upper back Open Wound/Cellutlitis/Pressure Ulcers: Yes Acute Fx/ORIF/Change in wt bearing status: No Severe MUSCULOSKELETAL pain: No ADL Dysfunction: No Acute CVA w/Hemiparesis/Hemiplegia: No Decreased Functional Mobility/Strength: No Sprain/Strain: No Acute Post-op Mobility Dysfunction: No Total Points: 5 09/06/24 19:21 BiPap/CPAP ROUTINE Comment: Diagnosis: Chest pain, wound to right upper back Discharge Exam General Appearance: no apparent distress, alert Neurologic Exam: alert, oriented x 3, cooperative, normal mood/affect, nml cerebellar function, sensation nml, No motor deficits Eye Exam: PERRL, EOMI, eyes nml inspection Ears, Nose, Throat Exam: normal ENT inspection, pharynx normal, moist mucous membranes Neck Exam: normal inspection, non-tender, supple, full range of motion Respiratory Exam: normal breath sounds, lungs clear, No respiratory distress Cardiovascular Exam: regular rate/rhythm, normal heart sounds Gastrointestinal/Abdomen Exam: soft, No tenderness, No mass Male Genitalia Exam: deferred Rectal Exam: deferred Extremity Exam: normal inspection, normal range of motion Skin Exam: other (dressing to right upper back) Final Diagnosis/Problem List - Final Discharge Diagnosis/Problem (1) Sepsis Status: Acute (2) Back abscess Status: Acute Code(s): L02.212 - CUTANEOUS ABSCESS OF BACK [ANY PART, EXCEPT BUTTOCK] (3) Hyperglycemia due to diabetes mellitus Status: Acute Code(s): E11.65 - TYPE 2 DIABETES MELLITUS WITH HYPERGLYCEMIA Telemedicine Encounter - Telemedicine Encounter Telemedicine Encounter: "The entirety of this encounter was performed via Telemedicine" This visit was performed using real-time audio and video connection between my location and thepatients locationwith the assistance of a surrogateat the patients location. Written or verbal consent was obtained from the patient/guardian to perform this visit [facility] technology. Any patient questions regarding the telemedicine interaction were answered. - Discharge Discharge Date: 09/08/24 Disposition: Home, Self-Care Condition: Stable Prescriptions: New Insulin Glargine,Hum.[email or web address].anlog [Insulin Glargine Solostar] 25 unit SQ QAM #2 Cephalexin Mh 500 mg [Keflex 500 mg] 500 mg PO BID 10 Days #20 cap Continue Verapamil HCl [Verapamil ER] 1 cap PO DAILY Allopurinol 100 mg [Zyloprim 100 mg] 1 tab PO DAILY Metformin HCl 500 mg [Glucophage 500 MG] 1,000 mg PO BIDWM Methocarbamol [Robaxin] 1 ea DAILY Lisinopril/Hydrochlorothiazide [Lisinopril-Hctz 20-12.5 mg Tab] 1 ea DAILY Discontinued Glipizide 5 mg [Glucotrol 5 MG] 1 tab PO BID Instructions: Insulin Glargine, Abscess Incision and Drainage ED, How to use an insulin pen Additional Instructions: CHANGE DRESSING DAILY REPACK WITH IODOFORM PACKING AND COVER WITH DRESSING BOAT OPERATOR MEDICATIONS FROM [facility] TOMORROW Follow up with: HINA ARRINGTON DO [ACTIVE STAFF] - 09/22/24 11:10 am [facility] [Primary Care Provider] - 09/09/24 1:30 pm (APPOINTMENT IN [facility]) Forms: Discharge Instructions
== END 2024-09-08 11:10 | disposition home or self-care (01) ==
LOC: ED 07:31 → MED SURG 14:55
PROVIDERS: ADMIT Internal Medicine; ATTEND Internal Medicine
DX: A41.9 Sepsis, unspecified organism (principal); L02.212 Cutaneous abscess of back [any part, except buttock and flank]; E11.65 Type 2 diabetes mellitus with hyperglycemia; E78.5 Hyperlipidemia, unspecified; I10 Essential (primary) hypertension; R07.9 Chest pain, unspecified; D72.829 Elevated white blood cell count, unspecified; Z79.899 Other long term (current) drug therapy
CPT/HCPCS: 10060; 36415; 71045; 71260; 80053; 80202; 81001; 82947; 83036; 83605; 83880; 84145; 84484; 85025; 85379; 85652; 86140; 87040; 87070; 87077; 87186; 93005; 93041; 93268; 93306; 94760; 96365; 96374; 96375; 96376; 99285; G0378; Q3014; J1817; J2270; J2405; A9270-GY; J3370